=== PATIENT | female | born 1945 | race Caucasian/White ===

== ENCOUNTER 2019-04-01 14:55 | Inpatient (IN) | payer MEDICARE ==
[~2019-04-01] VITALS: Ht 165.1 cm; Wt 119.8 kg
[~2019-04-01 14:55] MED LIST: ALENDRONATE SOD70 MG PO; ALLOPURINOL100 MG PO; ALLOPURINOL300 MG PO; AMMONIUM LACTA225 GM TOP; ASPIR 8181 MG PO; ATIVAN0.5 MG PO; ATORVASTATIN CA20 MG PO; CARVEDILOL12.5 MG PO; CARVEDILOL3.125 MG PO; CITALOPRAM HBR20 MG PO; DETROL LA4 MG PO; DOCUSATE SODIU100 MG PO; DULCOLAX10 MG RC; DUONEB 0.5 MG-33 ML INH; FUROSEMIDE40 MG PO; GABAPENTIN400 MG PO; GLIPIZIDE ER5 MG PO; GLUCAGON1 MG SQ; LIDODERM700 MG TOP; LISINOPRIL5 MG PO; LOSARTAN POTAS100 MG PO; LOVENOX40 MG/0.4 SQ; METFORMIN HCL500 MG PO; NITROGLYCERIN0.4 MG SL; NITROSTAT0.4 MG SL; NORCO 5-325 TA1 EACH PO; NOVOLOG100 UNITS/ SC; POTASSIUM CHLO20 ME1 PO; PRESERVISION T1 EACH PO; PROTONIX40 MG/ML PO; SPIRIVA18 MCG; SPIRIVA18 MCG IH; TOLTERODINE TART2 MG PO; TYLENOL325 MG PO; ZAROXOLYN2.5 MG PO
--- OUTSIDE RECORDS SUMMARY | 2019-04-01 15:00 | XMS REPORT | Continuity of Care Document ---
Author Author [facility] Interface Address Unknown Phone Unavailable Problems Problem Status Onset Date Classification Date Reported Comments Source Z12.31 - ENCNTR SCREEN MAMMOGRAM FOR MA Active 01/21/2017 [facility] [place] CHF Active 11/11/2013 [place] DIFFICULTY BREATHING Active 11/11/2013 [facility] (<span [id number]</span>) Active 11/11/2013 Problem 03/22/2019 [facility] [place] [facility]F Active 11/11/2013 Problem 11/30/2013 [facility] DM - Diabetes mellitus Active Problem 03/22/2019 [facility] [place], [place] Gout, arthritis Active Problem 03/22/2019 [facility] [place] HTN (<span [id number]">Confirmed</span>) Active Problem 03/22/2019 [facility] [place] Gout, arthritis Active Problem 11/30/2013 [facility] HTN Active Problem 11/30/2013 [facility] Primary osteoarthritis involving multiple joints Active Diagnosis 11/15/2018 Matthew Browning Idiopathic gout of foot, unspecified chronicity, unspecified laterality Active Diagnosis 11/15/2018 Matthew Browning Age-related osteoporosis without current pathological fracture Active Diagnosis 11/15/2018 Matthew Browning Polyarthralgia Active Diagnosis 11/15/2018 Matthew Browning [facility] current use of opiate analgesic Active Diagnosis 11/15/2018 Matthew Browning Abnormal laboratory test Active Problem 11/15/2018 Matthew Browning Positive ALLEN Active Problem 11/15/2018 Matthew Browning CHF NOS Active [facility] Medications Medication Details Route Status Patient Instructions Ordering Provider Order Date Source Tramadol one tab orally Active 50 mg orally tid prn for pain Browning 10/30/2018 Matthew Browning Remove - lidocaine topical patch 1 patch, Route: TOP, Bedtime, Drug form: ERFILM, Start date: 11/27/13 21:00:00, Duration: 30 day, Stop date: 12/26/13 21:00:00 No Longer Active [facility] 11/28/2013 [facility] LORazepam 0.5 mg oral tablet 0.5 mg=1 tab, PO, BID, Anxiety, # 50 tab, 0 Refill(s) Active [facility] 11/27/2013 [facility] Lidoderm 5% topical film (patch) 1 patch, TOP, Daily, Remove after 12 hours, # 30 patch, 0 Refill(s)Remove after 12 hours Active [facility] 11/27/2013 [facility] docusate sodium 100 mg oral capsule 100 mg=1 cap, PO, BID, Constipation, # 60 cap, 0 Refill(s) Active [facility] 11/27/2013 [facility] furosemide 40 mg oral tablet 160 mg=4 tab, PO, After Lunch, # 120 tab, 0 Refill(s) Active [facility] 11/27/2013 [facility] enoxaparin 40 mg/0.4 mL subcutaneous solution 40 mg=0.4 mL, SUB-Q, [id number], # 1,200 mL, 0 Refill(s) Active [facility] 11/27/2013 [facility] Maced[place] 5/325 oral tablet 1 tab, PO, Q6H, Pain, # 120 tab, 0 Refill(s) Active [facility] 11/27/2013 [facility] metFORMIN 500 mg oral tablet 500 mg=1 tab, PO, BID, # 60 tab, 0 Refill(s) Active [facility] 11/27/2013 [facility] Zaroxolyn 2.5 mg oral tablet 2.5 mg=1 tab, PO, Q-M-W-F, # 90 tab, 0 Refill(s) Active [facility] 11/27/2013 [facility] tolterodine 4 mg oral capsule, extended release 4 mg=1 cap, PO, Q24H, # 30 cap, 0 Refill(s) Active [facility] 11/27/2013 [facility] Spiriva 18 mcg inhalation capsule 18 microgram=1 ea, INHALATION, Daily, # 90 ea, 0 Refill(s) Active [facility] 11/27/2013 [facility] potassium chloride 20 mEq oral tablet, extended release 20 mEq=1 tab, PO, Daily, # 30 tab, 0 Refill(s) Active [facility] 11/27/2013 [facility] pantoprazole 40 mg oral enteric coated tablet 40 mg=1 tab, PO, Before Dinner, # 30 tab, 0 Refill(s) Active [facility] 11/27/2013 [facility] nitroglycerin 0.4 mg sublingual tablet 0.4 mg=1 tab, SL, Q5Min, Chest Pain, # 100 tab, 0 Refill(s) Active [facility] 11/27/2013 [facility] lisinopril 5 mg oral tablet 5 mg=1 tab, PO, Daily, # 30 tab, 0 Refill(s) Active [facility] 11/27/2013 [facility] potassium chloride 20 mEq oral tablet, extended release 20 mEq, 1 tab, Route: PO, Drug form: ERTAB, Daily, Dosing Weight 137.443, kg, Start date: 11/27/13 9:00:00, Duration: 30 day, Stop date: 12/26/13 9:00:00(Same as: K-Dur 20) "Do Not Crush" With food and full glass of water No Longer Active [facility] 11/27/2013 [facility] Zaroxolyn 2.5 mg, 1 tab, Route: PO, Drug form: TAB, Daily, Dosing Weight 137.443, kg, Start date: 11/27/13 9:00:00, Duration: 30 day, Stop date: 12/26/13 9:00:00(Same as: Zaroxolyn) No Longer Active [facility] 11/27/2013 [facility] Lidoderm 5% topical film (patch) 1 patch, Route: TOP, Daily, Drug form: FILM, Start date: 11/27/13 9:00:00, Duration: 30 day, Stop date: 12/26/13 9:00:00, Remove after 12 hoursRemove after 12 hoursApply only once for up to 12 hours in a 24-hour period (12 hours on and 12 hours off). (Same as: Lidoderm) "Remove old patch before application of new patch" No Longer Active [facility] 11/27/2013 [facility] furosemide 160 mg, 4 tab, Route: PO, Drug form: TAB, After Lunch, Dosing Weight 137.443, kg, Start date: 11/26/13 12:30:00, Duration: 30 day, Stop date: 12/25/13 12:30:00(Same as: Lasix) May cause GI upset. Give with food or milk. No Longer Active [facility] 11/26/2013 [facility] Vesicare 10mg 5 mg, Route: PO, Daily, Dosing Weight 137.443, kg, Start date: 11/26/13 9:00:00, Duration: 30 day, Stop date: 12/25/13 9:00:00 No Longer Active [facility] 11/26/2013 [facility] Detrol LA 4 mg, 1 cap, Route: PO, Drug form: CAP, Q24H, Start date: 11/26/13 9:00:00, Duration: 30 day, Stop date: 12/25/13 9:00:00Do Not Crush. (Same As: Detrol LA) No Longer Active [facility] 11/26/2013 [facility] magnesium sulfate 2 gm in Water 50 ml 4 gm, 100 mL, Route: IV, Drug form: INJ, ONCE, Dosing Weight 137.443, kg, Start date: 11/25/13 9:58:00, Stop date: 11/25/13 9:58:00 Inactive [facility] 11/25/2013 [facility] Ativan 0.5 mg, 1 tab, Route: PO, Drug form: TAB, BID, Dosing Weight 137.443, kg, PRN Anxiety, Start date: 11/24/13 21:02:00, Duration: 30 day, Stop date: 12/24/13 21:01:00(Same as: Ativan) No Longer Active [facility] 11/25/2013 [facility] Lasix 80 mg, 8 mL, Route: IV, Drug form: INJ, Q8H, Dosing Weight 137.443, kg, Start date: 11/24/13 16:00:00, Duration: 30 day, Stop date: 12/24/13 8:00:00(Same as: Lasix) No Longer Active [facility] 11/24/2013 [facility] alteplase 2 mg, 2 mL, Route: INJ, Drug form: INJ, ONCE, Dosing Weight 137.443, kg, Start date: 11/24/13 15:48:00, Stop date: 11/24/13 15:48:00"Syringe for catheter clearance or interventional radiology use. Reconstitute each vial of Cathflo Activase with 2.2ml Sterile Water resulting in a 1mg/ml solution. "Withdraw with a 5 micron filter needle." . (Same as: Activase) Inactive [facility] 11/24/2013 [facility] Lasix 40 mg oral tablet 40 mg, 1 tab, Route: PO, Drug form: TAB, BID, Dosing Weight 137.443, kg, Start date: 11/23/13 21:00:00, Duration: 30 day, Stop date: 12/23/13 17:00:00(Same as: Lasix) May cause GI upset. Give with food or milk. No Longer Active [facility] 11/24/2013 [facility] magnesium oxide 1,000 mg, 4 tab, Route: PO, Drug form: TAB, ONCE, Dosing Weight 137.443, kg, Priority: NOW, Start date: 11/23/13 18:13:00, Stop date: 11/23/13 18:13:00 Inactive [facility] 11/24/2013 [facility] Lasix 40 mg, 4 mL, Route: IVP, Drug form: INJ, Q6H, Dosing Weight 137.443, kg, Start date: 11/22/13 12:00:00, Duration: 30 day, Stop date: 12/22/13 6:00:00(Same as: Lasix) No Longer Active [facility] 11/22/2013 [facility] Lac-Hydrin 12% topical cream 1 appl, Route: TOP, BID, Drug form: CRM, PRN Dry Skin, Start date: 11/21/13 13:35:00, Duration: 30 day, Stop date: 12/21/13 13:34:00(Same as: Amlactin) No Longer Active [facility] 11/21/2013 [facility] magnesium sulfate 2 gm in Water 50 ml 2 gm, 50 mL, Route: IVPB, Drug form: INJ, ONCE, Dosing Weight 137.443, kg, Start date: 11/21/13 10:45:00, Duration: 2 hr, Stop date: 11/21/13 10:45:00 Inactive [facility] 11/21/2013 [facility] Dulcolax Laxative 10 mg, 1 supp, Route: OH, Drug form: SUPP, ONCE, Dosing Weight 137.443, kg, PRN Constipation, Start date: 11/21/13 10:28:00(Same As: Dulcolax, Bisco-Lax) Inactive [facility] 11/21/2013 [facility] Lasix 20 mg, 2 mL, Route: IVP, Drug form: INJ, BID, Dosing Weight 137.443, kg, Start date: 11/19/13 17:00:00, Duration: 30 day, Stop date: 12/19/13 9:00:00(Same as: Lasix) No Longer Active [facility] 11/19/2013 [facility] morphine Sulfate 1 mg, 0.5 mL, Route: IV, Drug form: INJ, Q6H, Dosing Weight 137.443, kg, PRN Pain Score 1-5, Start date: 11/19/13 13:11:00, Duration: 30 day, Stop date: 12/19/13 13:10:00(Same as:MORPhine Sulfate) No Longer Active [facility] 11/19/2013 [facility] metFORmin 500 mg oral tablet 500 mg, 1 tab, Route: PO, Drug form: TAB, BID, Dosing Weight 137.443, kg, Start date: 11/18/13 17:00:00, Duration: 30 day, Stop date: 12/18/13 9:00:00(Same as: Glucophage) Take with meal No Longer Active [facility] 11/18/2013 [facility] [place] 5/325 oral tablet 1 tab, Route: PO, Drug Form: TAB, Dosing Weight 137.443, kg, Q6H, PRN Pain, Start date: 11/18/13 14:46:00, Duration: 30 day, Stop date: 12/18/13 14:45:00(Same as: [place] 325/5) Do not exceed 4gm/day of acetaminophen. No Longer Active [facility] 11/18/2013 [facility] Saline Flush 0.9% 5 ml, Route: IVP, Drug Form: INJ, Dosing Weight 137.443, kg, Q12H, Start date: 11/17/13 21:00:00, Duration: 30 day, Stop date: 12/17/13 9:00:00Same as: BD Posiflush Sterile No Longer Active [facility] 11/18/2013 [facility] glucagon 1 mg, Route: IM, Drug form: PDR/INJ, PRN, PRN Blood Glucose Results, Start date: 11/17/13 20:32:00, Duration: 30 day, Stop date: 12/17/13 20:31:00 No Longer Active [facility] 11/18/2013 [facility] Dextrose 50% in Water IV 50 mL, Route: IVP, Start date: 11/17/13 20:32:00, Duration: 30 day, Stop date: 12/17/13 20:31:00, PRN Blood Glucose Results No Longer Active [facility] 11/18/2013 [facility] NovoLog FlexPen 12 unit, 0.12 mL, Route: SUB-Q, Drug form: SOLN, Q6H, PRN Blood Glucose Results, Start date: 11/17/13 20:32:00, Duration: 30 day, Stop date: 12/17/13 20:31:00Roll in palms of hands gently; Do not shake vigorously. (Same as: NovoLog) "single patient use only" Stable for 28 days at room temperature. Expires in days from Date No Longer Active [facility] 11/18/2013 [facility] NovoLog FlexPen 2 unit, 0.02 mL, Route: SUB-Q, Drug form: SOLN, Q6H, PRN Blood Glucose Results, Start date: 11/17/13 20:31:00, Duration: 30 day, Stop date: 12/17/13 20:30:00Roll in palms of hands gently; Do not shake vigorously. (Same as: NovoLog) "single patient use only" Stable for 28 days at room temperature. Expires in days from Date No Longer Active [facility] 11/18/2013 [facility] normal saline 0.9% IV 1,000 mL 1,000 mL, Rate: 50 ml/hr, Infuse over: 20 hr, Route: IV, Dosing Weight 137.443 kg, Total Volume: 1,000, Start date: 11/17/13 19:17:00, Duration: 30 day, Stop date: 12/17/13 19:16:00 Inactive [facility] 11/18/2013 [facility] D10W 1,000 mL 1,000 mL, Rate: 50 ml/hr, Infuse over: 20 hr, Route: IV, Dosing Weight 137.443 kg, Total Volume: 1,000, Start date: 11/17/13 17:47:00, Duration: 30 day, Stop date: 12/17/13 17:46:00 No Longer Active [facility] 11/17/2013 [facility] Colace 100 mg oral capsule 100 mg, 1 cap, Route: PO, Drug form: CAP, BID, Dosing Weight 137.443, kg, Start date: 11/17/13 17:00:00, Duration: 30 day, Stop date: 12/17/13 9:00:00(Same as: Colace) (Do Not Crush) No Longer Active [facility] 11/17/2013 [facility] Saline Flush 0.9% 5 ml, Route: IVP, Drug Form: INJ, Dosing Weight 137.443, kg, PRN, PRN Line Flush, Start date: 11/17/13 14:50:00, Duration: 30 day, Stop date: 12/17/13 14:49:00 Inactive [facility] 11/17/2013 [facility] nitroglycerin SL Tab 0.4 mg, Route: SL, Drug form: TAB, Q5Min, Dosing Weight 137.443, kg, PRN Chest Pain, Start date: 11/17/13 14:50:00, Duration: 3 doses or times, Stop date: Limited # of times Inactive [facility] 11/17/2013 [facility] Dulcolax Laxative 10 mg, 1 supp, Route: OH, Drug form: SUPP, Daily, Dosing Weight 137.443, kg, PRN Constipation, Start date: 11/17/13 11:13:00, Duration: 30 day, Stop date: 12/17/13 11:12:00(Same As: Dulcolax, Bisco-Lax) No Longer Active [facility] 11/17/2013 [facility] Haldol 2 mg, 0.4 mL, Route: IV, Drug form: INJ, Q6H, Dosing Weight 137.443, kg, PRN as needed for anxiety, Start date: 11/16/13 21:44:00, Duration: 30 day, Stop date: 12/16/13 21:43:00(Same as: Haldol) No Longer Active [facility] 11/17/2013 [facility] Pyridium 100 mg, 1 tab, Route: PO, Drug form: TAB, TID, Dosing Weight 137.443, kg, Start date: 11/16/13 17:00:00, Duration: 30 day, Stop date: 12/16/13 13:00:00Give with meals. (Same as: Pyridium) No Longer Active [facility] 11/16/2013 [facility] Haldol 2 mg, 0.4 mL, Route: IV, Drug form: INJ, ONCE, Start date: 11/16/13 10:11:00, Stop date: 11/16/13 10:11:00(Same as: Haldol) Inactive [facility] 11/16/2013 [facility] furosemide 80 mg, 8 mL, Route: IV, Drug form: INJ, ONCE, Dosing Weight 137.443, kg, Start date: 11/15/13 20:00:00, Stop date: 11/15/13 20:00:00(Same as: Lasix) Inactive [facility] 11/16/2013 [facility] Rocephin + Sodium Chloride 0.9% IV 100 mL 1 gm, Route: IVPB, [id number], Dosing Weight 137.443, kg, Start date: 11/15/13 14:00:00, Duration: 30 day, Stop date: 12/14/13 14:00:00(Same As: Rocephin). Use with 100ml NS mini-bag PLUS and infuse over 30 min No Longer Active [facility] 11/15/2013 [facility] furosemide 60 mg, 6 mL, Route: IV, Drug form: INJ, ONCE, Dosing Weight 137.443, kg, Start date: 11/15/13 13:48:00, Stop date: 11/15/13 13:48:00(Same as: Lasix) Inactive [facility] 11/15/2013 [facility] Sodium Chloride 0.9% IV 1000 mL + Dextrose 70% in Water IV 500 ml 1,000 mL, Rate: 100 ml/hr, Infuse over: 10 hr, Route: IV, Dosing Weight 137.443 kg, Total Volume: 1,000, Start date: 11/15/13 13:28:00, Duration: 30 day, Stop date: 12/15/13 13:27:00 Inactive [facility] 11/15/2013 [facility] DuoNeb inhalation solution 3 ml, Route: INHALATION, Drug Form: SOLN, Dosing Weight 137.443, kg, PRN, PRN Wheezing, Start date: 11/15/13 13:02:00, Duration: 30 day, Stop date: 12/15/13 13:01:00(Same as: Duoneb) No Longer Active [facility] 11/15/2013 [facility] sterile water 600 mL + Dextrose 50% in Water IV 400 mL + sodium chloride 154 mEq 600 mL, 50 ml/hr, Route: IV, Drug Form: INJ, Dosing Weight 137.443, kg, Continuous, Start date: 11/15/13 2:35:00 No Longer Active [facility] 11/15/2013 [facility] Lasix 40 mg, 4 mL, Route: IV, Drug form: INJ, ONCE, Dosing Weight 137.443, kg, Start date: 11/14/13 20:25:00, Stop date: 11/14/13 20:25:00(Same as: Lasix) Inactive [facility] 11/15/2013 [facility] DuoNeb inhalation solution 3 ml, Route: INHALATION, Drug Form: SOLN, Dosing Weight 137.443, kg, RQ4H, PRN Respiratory Protocol, NOW, Start date: 11/14/13 20:24:00, Duration: 30 day, Stop date: 12/14/13 20:23:00(Same as: Duoneb) No Longer Active [facility] 11/15/2013 [facility] D10W 1000 mL 1,000 mL, Rate: 100 ml/hr, Infuse over: 10 hr, Route: IV, Dosing Weight 137.443 kg, Total Volume: 1,000, Start date: 11/14/13 16:28:00, Duration: 30 day, Stop date: 12/14/13 16:27:00 No Longer Active [facility] 11/14/2013 [facility] d50 syringe 25 gm, 50 mL, Route: IVP, Drug Form: INJ, Dosing Weight 137.443, kg, PRN, PRN Other -See Comment, Start date: 11/14/13 16:13:00, Duration: 30 day, Stop date: 12/14/13 16:12:00, for blood glucose No Longer Active [facility] 11/14/2013 [facility] D50W 1000 mL 1,000 mL, Rate: 100 ml/hr, Infuse over: 10 hr, Route: IV, Dosing Weight 137.443 kg, Total Volume: 1,000, Start date: 11/14/13 16:11:00, Duration: 30 day, Stop date: 12/14/13 16:10:00 Inactive [facility] 11/14/2013 [facility] D10W 1,000 mL 1,000 mL, Rate: 50 ml/hr, Infuse over: 20 hr, Route: IV, Dosing Weight 137.443 kg, Total Volume: 1,000, Start date: 11/14/13 14:13:00, Duration: 30 day, Stop date: 12/14/13 14:12:00 Inactive [facility] 11/14/2013 [facility] Dextrose 50% Syringe 25 gm, 50 mL, Route: IVP, Drug Form: INJ, Dosing Weight 137.443, kg, ONCE, PRN Blood Glucose Results, Start date: 11/14/13 5:39:00 Inactive [facility] 11/14/2013 [facility] Dextrose 5% in Water IV 1,000 mL 1,000 mL, Rate: 75 ml/hr, Infuse over: 13.3 hr, Route: IV, Dosing Weight 137.443 kg, Total Volume: 1,000, Start date: 11/14/13 5:39:00, Duration: 30 day, Stop date: 12/14/13 5:38:00 Inactive [facility] 11/14/2013 [facility] d50 syringe 25 gm, 50 mL, Route: IVP, Drug Form: INJ, Dosing Weight 137.443, kg, ONCE, Start date: 11/13/13 17:14:00, Stop date: 11/13/13 17:14:00 Inactive [facility] 11/13/2013 [facility] glimepiride 4 mg, 1 tab, Route: PO, Drug form: TAB, BID, Dosing Weight 137.443, kg, Start date: 11/13/13 17:00:00, Duration: 30 day, Stop date: 12/13/13 9:00:00(Same as: Amaryl) No Longer Active [facility] 11/13/2013 [facility] Spiriva 18 mcg inhalation capsule 1 ea, Route: INHALATION, Drug form: CAP, Daily, Dosing Weight 137.443, kg, Start date: 11/13/13 9:00:00, Duration: 30 day, Stop date: 12/12/13 9:00:00(Same As: Spiriva). No Longer Active [facility] 11/13/2013 [facility] lisinopril 5 mg, 1 tab, Route: PO, Drug form: TAB, Daily, Dosing Weight 137.443, kg, Start date: 11/13/13 9:00:00, Duration: 30 day, Stop date: 12/12/13 9:00:00(Same as: Prinivil, Zestril) No Longer Active [facility] 11/13/2013 [facility] furosemide 20 mg, 2 mL, Route: IVP, Drug form: INJ, Daily, Dosing Weight 137.443, kg, Start date: 11/13/13 9:00:00, Duration: 30 day, Stop date: 12/12/13 9:00:00(Same as: Lasix) No Longer Active [facility] 11/13/2013 [facility] Coreg 3.125 mg, 1 tab, Route: PO, Drug form: TAB, Q12H, Dosing Weight 137.443, kg, Start date: 11/12/13 21:00:00, Duration: 30 day, Stop date: 12/12/13 9:00:00Give with food. (Same As: Coreg) No Longer Active [facility] 11/13/2013 [facility] Protonix 40 mg, 1 tab, Route: PO, Drug form: ECTAB, Before Dinner, Start date: 11/12/13 16:30:00, Duration: 30 day, Stop date: 12/11/13 16:30:00Tablet should not be chewed or crushed. (Same as: Protonix) No Longer Active [facility] 11/12/2013 [facility] digoxin 0.25 mg, 1 mL, Route: IVP, Drug form: INJ, Q8H, Dosing Weight 137.443, kg, Start date: 11/12/13 12:00:00, Duration: 4 doses or times, Stop date: 11/13/13 12:00:00(Same as: Lanoxin) No Longer Active [facility] 11/12/2013 [facility] allopurinol 300 mg, 1 tab, Route: PO, Drug form: TAB, Daily, Dosing Weight 137.443, kg, Start date: 11/12/13 11:00:00, Duration: 30 day, Stop date: 12/12/13 9:00:00(Same as: Zyloprim) No Longer Active [facility] 11/12/2013 [facility] cholecalciferol 5,000 IntlUnit, 5 tab, Route: PO, Drug form: TAB, Daily, Dosing Weight 137.443, kg, Start date: 11/12/13 11:00:00, Duration: 30 day, Stop date: 12/12/13 9:00:00Same as : Vitamin D3 No Longer Active [facility] 11/12/2013 [facility] Nitrostat 0.4 mg sublingual tablet 0.4 mg, 1 tab, Route: SL, Drug form: TAB, Q5Min, Dosing Weight 137.443, kg, PRN Chest Pain, Start date: 11/12/13 10:39:00, Duration: 3 doses or times, Stop date: Limited # of times Inactive [facility] 11/12/2013 [facility] magnesium sulfate 2 gm in Water 50 ml 2 gm, 50 mL, Route: IV, Drug form: INJ, ONCE, Dosing Weight 137.443, kg, Start date: 11/12/13 10:38:00, Stop date: 11/12/13 10:38:00 Inactive [facility] 11/12/2013 [facility] LORAzepam 0.5 mg, 1 tab, Route: PO, Drug form: TAB, TID, Dosing Weight 137.443, kg, PRN Anxiety, Start date: 11/12/13 10:38:00, Duration: 30 day, Stop date: 12/12/13 10:37:00(Same as: Ativan) No Longer Active [facility] 11/12/2013 [facility] morphine Sulfate 2 mg, 1 mL, Route: IVP, Drug form: INJ, Q2H, Dosing Weight 137.443, kg, PRN Chest Pain, Start date: 11/12/13 10:38:00, Duration: 30 day, Stop date: 12/12/13 10:37:00(Same as:MORPhine Sulfate) No Longer Active [facility] 11/12/2013 [facility] hydrALAZINE 10 mg, 0.5 mL, Route: IV, Drug form: INJ, Q4H, Dosing Weight 137.443, kg, PRN Hypertension, Start date: 11/12/13 10:38:00, Duration: 30 day, Stop date: 12/12/13 10:37:00(Same as: Apresoline) Push over 5 minutes No Longer Active [facility] 11/12/2013 [facility] metoprolol 5 mg/5 ml INJ 2.5 mg, 2.5 mL, Route: IV, Drug form: INJ, Q2H, Dosing Weight 137.443, kg, PRN Tachycardia, Start date: 11/12/13 10:38:00, Duration: 30 day, Stop date: 12/12/13 10:37:00(Same as: Lopressor) Push over 2 minutes No Longer Active [facility] 11/12/2013 [facility] pneumococcal 23-valent vaccine 0.5 ml, Route: IM, Drug Form: INJ, Start date: 11/12/13 9:00:00, Stop date: 11/12/13 9:00:00 Inactive [facility] 11/12/2013 [facility] Lovenox 40 mg, 0.4 mL, Route: SUB-Q, Drug form: INJ, [id number], Dosing Weight 130.909, kg, Start date: 11/12/13 0:00:00, Duration: 30 day, Stop date: 12/11/13 0:00:00(Same as: Lovenox) No Longer Active [facility] 11/12/2013 [facility] Saline Flush 0.9% 5 ml, Route: IVP, Drug Form: INJ, Dosing Weight 130.909, kg, PRN, PRN Line Flush, Start date: 11/11/13 23:50:00, Duration: 30 day, Stop date: 12/11/13 23:49:00(Same as: BD Posiflush) No Longer Active [facility] 11/12/2013 [facility] pantoprazole 40 mg, Route: IVP, Drug form: INJ, Before Dinner, Dosing Weight 130.909, kg, Priority: STAT, Start date: 11/11/13 23:50:00, Duration: 30 day, Stop date: 12/11/13 16:30:00For IV push reconstitute with 10 ml 0.9% sodium chloride and push over 2 minutes. (Same as: Protonix) No Longer Active [facility] 11/12/2013 [facility] ondansetron 4 mg, 2 mL, Route: IVP, Drug form: INJ, Q8H, Dosing Weight 130.909, kg, PRN Nausea & Vomiting, Start date: 11/11/13 23:50:00, Duration: 30 day, Stop date: 12/11/13 23:49:00(Same as: Zofran) [facility] docusate 100 mg, 1 cap, Route: PO, Drug form: CAP, BID, Dosing Weight 130.909, kg, PRN Constipation, Start date: 11/11/13 23:50:00, Duration: 30 day, Stop date: 12/11/13 23:49:00(Same as: Colace) (Do Not Crush) No Longer Active [facility] 11/12/2013 [facility] acetaminophen 650 mg, 20.3 mL, Route: PO, Drug form: LIQ, Q4H, Dosing Weight 130.909, kg, PRN Pain 1-3/Temp > 100.4 F, Start date: 11/11/13 23:50:00, Duration: 30 day, Stop date: 12/11/13 23:49:00Max [id number]=8694cu/day (4 gm/day). (Same as: Tylenol) [facility] Lasix 40 mg, 4 mL, Route: IVP, Drug form: INJ, Q12H, Dosing Weight 130.909, kg, Priority: STAT, Start date: 11/11/13 23:50:00, Duration: 30 day, Stop date: 12/11/13 21:00:00(Same as: Lasix) No Longer Active [facility] 11/12/2013 [facility] nitroglycerin 0.4 mg sublingual tablet 0.4 mg, 1 tab, Route: SL, Drug form: TAB, Q5Min, PRN Chest Pain, Start date: 11/11/13 23:30:00, Duration: 30 day, Stop date: 12/11/13 23:29:00(Same as:Nitroquick, Nitrostat) "Do Not Crush" Sublingual tablet [facility] atropine 0.5 mg, 5 mL, Route: IVP, Drug form: INJ, PRN, PRN Bradycardia, Start date: 11/11/13 23:30:00, Duration: 30 day, Stop date: 12/11/13 23:29:00 No Longer Active [facility] 11/12/2013 [facility] Valium 10 mg, Route: PO, ONCE, Dosing Weight 130.909, kg, Priority: STAT, Start date: 11/11/13 22:49:00, Stop date: 11/11/13 22:49:00 Inactive [facility] 11/12/2013 [facility] hydrochlorothiazide-triamterene 25 mg-37.5 mg oral capsule 1 cap, PO, Daily, # 30 cap, 0 Refill(s) No Longer Active 11/12/2013 [facility] allopurinol 300 mg oral tablet 300 mg=1 tab, PO, Daily, # 30 tab, 0 Refill(s) Active [facility] 11/12/2013 [facility] Actos 45 mg oral tablet 45 mg=1 tab, PO, Daily, # 30 tab, 0 Refill(s) No Longer Active 11/12/2013 [facility] glimepiride 4 mg oral tablet 4 mg=1 tab, PO, BID, # 30 tab, 0 Refill(s) No Longer Active 11/12/2013 [facility] diazepam 10 mg oral tablet 10 mg=1 tab, PO, TID, Anxiety, 0 Refill(s) No Longer Active 11/12/2013 [facility] metFORmin 500 mg oral tablet 1,000 mg=2 tab, PO, BID, # 60 tab, 0 Refill(s) No Longer Active 11/12/2013 [facility] tramadol 100 mg, Route: PO, Drug form: TAB, ONCE, Dosing Weight 130.909, kg, Start date: 11/11/13 19:20:00, Stop date: 11/11/13 19:20:00 Inactive [facility] 11/12/2013 [facility] Lasix 40 mg, 4 mL, Route: IVP, Drug form: INJ, ONCE, Dosing Weight 130.909, kg, Priority: STAT, Start date: 11/11/13 19:18:00, Stop date: 11/11/13 19:18:00(Same as: Lasix) Inactive [facility] 11/12/2013 [facility] Atorvastatin Calcium 1 tablet Orally Active 35mg Orally Once a day Nallely Browning Allopurinol 1 tablet Orally Active 100 MG Orally Once a day Nallely Browning Aspir-81 1 tablet Orally Active 81 MG Orally Once a day Nallely Browning Losartan Potassium 1 tablet Orally Active 100 MG Orally Once a day Nallely Browning Furosemide 1 tablet Orally Active 80 MG Orally Once a day Nallely Browning Gabapentin 1 capsule Orally Active 400 MG Orally Twice a day [place] Matthew Browning Tolterodine Tartrate 1 tablet Orally Active 2 MG Orally Twice a day [place] Matthew Browning Alendronate Sodium 1 tablet Orally Active 35 MG Orally q week [place] Matthew Browning Citalopram Hydrobromide 1 tablet Orally Active 10 MG Orally Once a day [place] Matthew Browning Tramadol HCl 1 tablet as needed Orally Active 50 MG Orally every 6 hrs [place] Matthew Browning Carvedilol 1 tablet Orally Active 12.5 MG Orally once a day [place] Matthew Browning Allergies, Adverse Reactions, Alerts Substance Category Reaction Severity Reaction type Status Date Reported Comments Source N.K.D.A. Adverse Reaction Info Not Available Adverse Reaction Active 10/30/2018 Matthew [facility] No Known Medication Allergies Assertion Drug allergy AYLIN Perez Immunizations Immunization Date Given Site Status Last Updated Comments Source influenza virus vaccine, inactivated<sup>1</sup> 11/28/2013 completed Keeley Admin Note: recvd 10/30/13 at 's office AYLIN [place] influenza virus vaccine, inactivated<sup>1</sup> 11/28/2013 completed Keeley 1Admin Note: recvd 10/30/13 at 's office [facility] pneumococcal 23-valent vaccine 11/12/2013 Right Deltoid [facility] [place] pneumococcal 23-valent vaccine 11/12/2013 completed Abisai [facility] Results Order Name Results Value Reference Range Date Interpretation Comments Source Breast Mammo Scrn ZAK incl CAD MA Breast Mammo Scrn ZAK incl CAD MA BILATERAL DIGITAL SCREENING MAMMOGRAM WITH CAD: 03/20/2019 CLINICAL: Routine/Screening. Current study was evaluated with a Computer Aided Detection (CAD) system. COMPARISON:Comparison is made to exams dated: 02/19/2017 mammogram - [facility] [place] [place] and 11/08/2014 mammogram - [facility]. TECHNIQUE: Mammographic views were obtained using digital acquisition. Current study was also evaluated with a Computer Aided Detection (CAD) system. FINDINGS: There are scattered fibroglandular densities in both breasts. Multiple bilateral asymmetries are stable when accounting for differences in positioning and technique. There are benign vascular calcifications and calcifications in both breasts. No significant masses, calcifications, or other findings are seen in either breast. There has been no significant interval change. IMPRESSION: BENIGN RECOMMENDATION:There is no mammographic evidence of malignancy. A 1 year screening mammogram is recommended.(03/20/2020) This exam was interpreted at [id number] for ISIDRO Perez, SL 15. Professional services are provided by the [facility]. Michael Garcia M.D. cm/penrad:03/20/2019 15:44:45 Line O Scribe Operator(s): RT Jake(R)(M), [facility] [place] [place] letter sent: BI-RADS 1/2 Mammogram BI-RADS: 2 Benign 03/20/2019 - - Read by: Memo Vaughan MD Dictated Date/time: 03/20/19 15:44 Electronically Signed by: Memo Vaughan MD 03/20/19 15:44 FINAL REPORT ISIDRO Perez Bone Density DXA [employer] MA Bone Density DXA [employer] MA BONE DENSITY ASSESSMENT: 03/20/2019 CLINICAL DATA: Post menopausal and clinical risk for osteoporosis. /Post Menopausal DISEASE HISTORY: Type 1 diabetes. FINDINGS: Bone density evaluation was performed 03/20/2019 on the right femur neck using a Hologic unit. The BMD average for the exam is 0.506 g/cm2. The T-score is -3.10 and the Z-score is -1.20. This matches the World Health Organization's criteria for osteoporosis and places the patient at a high risk for fracture. An additional bone density evaluation was performed 03/20/2019 on the left femur neck using a Hologic unit. The BMD average for the exam is 0.635 g/cm2. The T- score is -1.90. This matches the World Health Organization's criteria for osteopenia and places the patient at a medium risk for fracture. An additional bone density evaluation was performed 03/20/2019 on the right hip using a Hologic unit. The BMD average for the exam is 0.761 g/cm2. The T-score is -1.50 and the Z-score is 0.10. This matches the World Health Organization's criteria for osteopenia and places the patient at a medium risk for fracture. An additional bone density evaluation was performed 03/20/2019 on the left hip using a Hologic unit. The BMD average for the exam is 0.728 g/cm2. The T-score is -1.80 and the Z-score is -0.10. This matches the World Health Organization's criteria for osteopenia and places the patient at a medium risk for fracture. An additional bone density evaluation was performed 03/20/2019 on the AP L1-L2 region of spine using a Hologic unit. The BMD average for the exam is 1.147 g/cm2. The T-score is 1.50 and the Z-score is 3.60. This matches the World Health Organization's criteria for normal bone density and places the patient within normal limits of fracture risk. IMPRESSION: OSTEOPOROSIS Patient is at high risk for fracture. Patient consult w/primary care provider is recommended. This exam was interpreted at [id number] for FABI Greenberg 15. Olga Fong M.D., ms/mina:03/23/2019 08:51:23 Line O Scribe Operator(s): Lalita NAILS)(Sharyn), [facility] [place] [place] 03/20/2019 - - Read by: Olga Fong MD Dictated Date/time: 03/23/19 08:51 Electronically Signed by: Olga Fong MD 03/23/19 08:51 FINAL REPORT ISIDRO Perez Bone Density DXA [employer] MA Bone Density DXA [employer] MA - Bone Density DXA [employer] MA BONE DENSITY EVALUATION: 02/19/2017 CLINICAL DATA: Post menopausal. RISK FACTORS: race and early or surgical menopause. FINDINGS: Bone density evaluation was performed 02/19/2017 on the AP L2-L4 region of spine using a Hologic unit. The BMD average for the exam is 1.069 g/cm2. The T-score is -0.10 and the Z-score is 2.10. This matches the World Health Organization's criteria for normal bone density and places the patient within normal limits of fracture risk. An additional bone density evaluation was performed 02/19/2017 on the right femur neck using a Hologic unit. The BMD average for the exam is 0.478 g/cm2. The T-score is -3.30 and the Z-score is -1.50. This matches the World Health Organization's criteria for osteoporosis and places the patient at a high risk for fracture. An additional bone density evaluation was performed 02/19/2017 on the right hip using a Hologic unit. The BMD average for the exam is 0.746 g/cm2. The T-score is -1.60 and the Z-score is -0.10. This matches the World Health Organization's criteria for osteopenia and places the patient at a medium risk for fracture. An additional bone density evaluation was performed 02/19/2017 on the left femur neck using a Hologic unit. The BMD average for the exam is 0.574 g/cm2. The T- score is -2.50 and the Z-score is -0.70. This matches the World Health Organization's criteria for osteoporosis and places the patient at a high risk for fracture. An additional bone density evaluation was performed 02/19/2017 on the left hip using a Hologic unit. The BMD average for the exam is 0.720 g/cm2. The T-score is -1.80 and the Z-score is -0.30. This matches the World Health Organization's criteria for osteopenia and places the patient at a medium risk for fracture. This scan was performed on a e-channel Wi DEXA scanner. IMPRESSION: OSTEOPOROSIS Patient is at high risk for fracture. Patient consult w/primary care provider is recommended. Professional services are provided by the [facility]. This exam was dictated and interpreted by [id number] for ISIDRO Perez. [place] michael/mina:02/20/2017 08:36:02 Line O Scribe Operator: Nirmala CASTELLANOS(R)(M), [facility] [place] [place] 02/19/2017 - - Read by: Helena Myers MD Dictated Date/time: 02/20/17 08:36 Electronically Signed by: Helena Myers MD 02/20/17 08:36 FINAL REPORT ISIDRO Perez Breast Mammo Scrn ZAK incl CAD MA Breast Mammo Scrn ZAK incl CAD MA - BREAST MAMMO SCRN ZAK INCL CAD MA BILATERAL DIGITAL SCREENING MAMMOGRAM WITH CAD: 02/19/2017 CLINICAL: Routine. Current study was evaluated with a Computer Aided Detection (CAD) system. Comparison is made to exam dated: 11/08/2014 mammogram - [facility]. There are scattered fibroglandular densities in both breasts. Stable asymmetric breast tissue is noted in the left upper outer breast. There are benign vascular calcifications in both breasts. There also are benign calcifications in the right breast. No significant masses, calcifications, or other findings are seen in either breast. There has been no significant interval change. IMPRESSION: BENIGN There is no mammographic evidence of malignancy. A 1 year screening mammogram is recommended. Professional services are provided by the [facility]. Helena Myers M.D. ak/penrad:02/19/2017 09:11:48 Line O Scribe Operator: Lalita Gonzalez RT(R)(M), [facility] [place] [place] This exam was dictated and interpreted by [id number] for ISIDRO Tucker Abel. letter sent: Normal exam Mammogram BI-RADS: 2 Benign 02/19/2017 - - Read by: Helena Myers MD Dictated Date/time: 02/19/17 09:11 Electronically Signed by: Helena Myers MD 02/19/17 09:11 FINAL REPORT ISIDRO Perez Digital Mammo Screening Zak MA Digital Mammo Screening Zak MA - DIGITAL MAMMO SCREENING ZAK MA BILATERAL FIRST EVER DIGITAL SCREENING MAMMOGRAM WITH CAD: 11/08/2014 CLINICAL: Routine. Current study was evaluated with a Computer Aided Detection (CAD) system. No prior exams were available for comparison. There are scattered fibroglandular densities in both breasts. No significant masses, calcifications, or other findings are seen in either breast. IMPRESSION: NEGATIVE There is no mammographic evidence of malignancy. A screening mammogram in one year is recommended. Dr. Cristian schafer/penrad:11/08/2014 12:27:46 Line O Scribe Operator: Alycia Webb RT(R)(M), [facility] This exam was dictated and interpreted by [id number] for ISIDRO Perez. letter sent: Normal exam Mammogram BI-RADS: 1 Negative 11/08/2014 - - Read by: Cristian Bee MD Dictated Date/time: 11/08/14 12:27 Electronically Signed by: Cristian Bee MD 11/08/14 12:27 FINAL REPORT AYLIN Toro BEDSIDE GLUCOSE TESTING Glucose POC 119 mg/dL 70 - 99 11/28/2013 [place] 1Interpretive Data: Upper Reportable Limit: 200 mg/dL. [facility] BEDSIDE GLUCOSE TESTING Gluc POC Comment 1 Notified CYNTHIA 11/27/2013 [facility] GLUCOSE TESTING Glucose POC 126 mg/dL 70 - 99 11/27/2013 [place] 2Interpretive Data: Upper Reportable Limit: 200 mg/dL. [facility] BEDSIDE GLUCOSE TESTING Gluc POC Comment 1 Notified CYNTHIA 11/27/2013 [facility] BEDSIDE GLUCOSE TESTING Glucose POC 131 mg/dL 70 - 99 11/27/2013 [place] 3Interpretive Data: Upper Reportable Limit: 200 mg/dL. [facility] CHEMISTRY Uric Acid 3.7 mg/dL 2.5 - 7.0 11/27/2013 Normal [facility] Foot 3 views Bilateral Foot 3 views Bilateral HISTORY: Swelling and pain. Bilateral feet 3 views each. Nonspecific soft tissue swelling within both feet. No soft tissue gas collection. No fracture subluxation or focal bone lesion is otherwise demonstrated. SL:13 11/27/2013 - - Read by: Tomi Israel Dictated Date/time: 11/27/13 11:16 Electronically Signed by: Tomi Israel MD 11/27/13 11:18 FINAL REPORT [facility] GLUCOSE TESTING Gluc POC Comment 1 Notified CYNTHIA 11/26/2013 [facility] CHEMISTRY Phosphorus 2.8 mg/dL 2.5 - 4.5 11/26/2013 Normal [facility] CHEMISTRY Magnesium Lvl 2.0 mg/dL 1.8 - 2.4 11/26/2013 Normal [facility] CHEMISTRY Calcium Lvl 8.1 mg/dL 8.5 - 10.5 11/26/2013 LOW [facility] CHEMISTRY CO2 34 meq/L 24 - 32 11/26/2013 HI [facility] CHEMISTRY eGFR 91 mL/min/1.73m2 11/26/2013 4Result Comment: The eGFR is calculated using the CKD-EPI formula. In most young, healthy individuals the eGFR will be >90 mL/min/1.73m2. The eGFR declines with age. An eGFR of 60-89 may be normal in some populations, particularly the elderly, for whom the CKD-EPI formula has not been extensively validated. Use of the eGFR is not recommended in the following populations: Individuals with unstable creatinine concentrations, including patients and those with serious co-morbid conditions. Patients with extremes in muscle mass or diet. The data above are obtained from the National Kidney Disease Education Program (NKDEP) which additionally recommends that when the eGFR is used in patients with extremes of body mass index for purposes of drug dosing, the eGFR should be multiplied by the estimated BMI. [facility] CHEMISTRY AGAP 13.2 meq/L 10.0 - 20.0 11/26/2013 Normal [facility] CHEMISTRY Sodium Lvl 138 meq/L 135 - 145 11/26/2013 Normal [facility] CHEMISTRY Creatinine Lvl 0.7 mg/dL 0.5 - 1.4 11/26/2013 Normal [facility] CHEMISTRY Chloride Lvl 95 meq/L 95 - 109 11/26/2013 Normal [facility] CHEMISTRY Potassium Lvl 4.2 meq/L 3.5 - 5.1 11/26/2013 Normal [facility] CHEMISTRY Glucose Lvl 120 mg/dL 70 - 99 11/26/2013 [place] 7Interpretive Data: Adult reference range values reflect the clinical guidelines of the [place] [employer]. [facility] CHEMISTRY BUN 22 mg/dL 7 - 22 11/26/2013 Normal [facility] CHEMISTRY Magnesium Lvl 1.2 mg/dL 1.8 - 2.4 11/25/2013 LOW [facility] CHEMISTRY Phosphorus 2.7 mg/dL 2.5 - 4.5 11/25/2013 Normal [facility] CHEMISTRY eGFR 77 mL/min/1.73m2 11/25/2013 5Result Comment: The eGFR is calculated using the CKD-EPI formula. In most young, healthy individuals the eGFR will be >90 mL/min/1.73m2. The eGFR declines with age. An eGFR of 60-89 may be normal in some populations, particularly the elderly, for whom the CKD-EPI formula has not been extensively validated. Use of the eGFR is not recommended in the following populations: Individuals with unstable creatinine concentrations, including patients and those with serious co-morbid conditions. Patients with extremes in muscle mass or diet. The data above are obtained from the National Kidney Disease Education Program (NKDEP) which additionally recommends that when the eGFR is used in patients with extremes of body mass index for purposes of drug dosing, the eGFR should be multiplied by the estimated BMI. [facility] CHEMISTRY Glucose Lvl 132 mg/dL 70 - 99 11/25/2013 [place] 8Interpretive Data: Adult reference range values reflect the clinical guidelines of the [place] [employer]. [facility] CHEMISTRY Creatinine Lvl 0.8 mg/dL 0.5 - 1.4 11/25/2013 Normal [facility] CHEMISTRY BUN 22 mg/dL 7 - 22 11/25/2013 Normal [facility] CHEMISTRY Sodium Lvl 139 meq/L 135 - 145 11/25/2013 Normal [facility] CHEMISTRY Chloride Lvl 95 meq/L 95 - 109 11/25/2013 Normal [facility] CHEMISTRY Potassium Lvl 4.5 meq/L 3.5 - 5.1 11/25/2013 Normal [facility] CHEMISTRY CO2 37 meq/L 24 - 32 11/25/2013 [place] [facility] CHEMISTRY Calcium Lvl 8.3 mg/dL 8.5 - 10.5 11/25/2013 LOW [facility] CHEMISTRY AGAP 11.5 meq/L 10.0 - 20.0 11/25/2013 Normal [facility] HEMATOLOGY RDW 20.0 % 11.5 - 14.5 11/25/2013 [facility] HEMATOLOGY MCHC 29.8 g/dL 32.0 - 36.0 11/25/2013 LOW [facility] HEMATOLOGY MCH 26.3 pg 27.0 - 31.0 11/25/2013 LOW [facility] HEMATOLOGY Platelet 170 K/CMM 133 - 450 11/25/2013 Normal [facility] HEMATOLOGY Hgb 10.0 g/dL 12.0 - 16.0 11/25/2013 LOW [facility] HEMATOLOGY RBC X 10x6 3.80 M/CMM 4.20 - 5.40 11/25/2013 LOW [facility] HEMATOLOGY MCV 88.0 fL 81.0 - 99.0 11/25/2013 Normal [facility] HEMATOLOGY Hct 33.4 % 36.0 - 48.0 11/25/2013 LOW [facility] HEMATOLOGY MPV 7.2 fL 7.4 - 10.4 11/25/2013 LOW [facility] HEMATOLOGY WBC X 10x3 10.0 K/CMM 3.7 - 10.4 11/25/2013 Normal [facility] HEMATOLOGY Monocytes # 0.9 K/CMM 0.0 - 0.8 11/25/2013 [facility] HEMATOLOGY Basophils 0.8 % 0.0 - 1.0 11/25/2013 Normal [facility] HEMATOLOGY Lymphocytes # 1.7 K/CMM 1.0 - 5.5 11/25/2013 Normal [facility] HEMATOLOGY Eosinophils 2.8 % 0.0 - 4.0 11/25/2013 Normal [facility] HEMATOLOGY Segs-Bands # 7.0 K/CMM 1.5 - 8.1 11/25/2013 Normal [facility] HEMATOLOGY Basophils # 0.1 K/CMM 0.0 - 0.2 11/25/2013 Normal [facility] HEMATOLOGY Eosinophils # 0.3 K/CMM 0.0 - 0.5 11/25/[address] [facility] Monocytes 8.9 % 2.0 - 12.0 11/25/[address] [facility] Lymphocytes 17.2 % 20.0 - 40.0 11/25/[address] [facility] Segs 70.3 % 45.0 - 75.0 11/25/[address] [facility] INR 1.01 0.85 - 1.17 11/24/2013 Normal 19Interpretive Data: RECOMMENDED RANGES FOR PROTIME INR: 2.0-3.0 for most medical and surgical thromboembolic states. 2.5-3.5 for artificial heart valves and recurrent embolism. INR SHOULD BE USED ONLY FOR PATIENTS ON STABLE ANTICOAGULANT THERAPY. [facility] PROTIME 13.2 s 12.0 - 14.7 11/24/[address] [facility] aPTT 31.1 s 22.9 - 35.8 11/24/2013 Normal 22Interpretive Data: Heparin Therapeutic Range: 57 - 92 Seconds [facility] BEDSIDE GLUCOSE TESTING Gluc POC Comment 2 Confirmed with 11/24/2013 [facility] BEDSIDE GLUCOSE TESTING Gluc POC Comment 2 Confirmed with 11/24/2013 [facility] CHEMISTRY eGFR 77 mL/min/1.73m2 11/24/2013 6Result Comment: The eGFR is calculated using the CKD-EPI formula. In most young, healthy individuals the eGFR will be >90 mL/min/1.73m2. The eGFR declines with age. An eGFR of 60-89 may be normal in some populations, particularly the elderly, for whom the CKD-EPI formula has not been extensively validated. Use of the eGFR is not recommended in the following populations: Individuals with unstable creatinine concentrations, including patients and those with serious co-morbid conditions. Patients with extremes in muscle mass or diet. The data above are obtained from the National Kidney Disease Education Program (NKDEP) which additionally recommends that when the eGFR is used in patients with extremes of body mass index for purposes of drug dosing, the eGFR should be multiplied by the estimated BMI. [facility] CHEMISTRY BUN 19 mg/dL 7 - 22 11/24/2013 Normal [facility] CHEMISTRY Creatinine Lvl 0.8 mg/dL 0.5 - 1.4 11/24/2013 Normal [facility] CHEMISTRY Potassium Lvl 4.3 meq/L 3.5 - 5.1 11/24/2013 Normal [facility] CHEMISTRY Sodium Lvl 135 meq/L 135 - 145 11/24/2013 Normal [facility] CHEMISTRY Chloride Lvl 94 meq/L 95 - 109 11/24/2013 LOW [facility] CHEMISTRY Calcium Lvl 8.5 mg/dL 8.5 - 10.5 11/24/2013 Normal [facility] CHEMISTRY CO2 38 meq/L 24 - 32 11/24/2013 HI [facility] CHEMISTRY AGAP 7.3 meq/L 10.0 - 20.0 11/24/2013 LOW [facility] CHEMISTRY Glucose Lvl 139 mg/dL 70 - 99 11/24/2013 [place] 9Interpretive Data: Adult reference range values reflect the clinical guidelines of the [place] [employer]. [facility] CHEMISTRY Magnesium Lvl 1.4 mg/dL 1.8 - 2.4 11/24/2013 LOW [facility] CHEMISTRY Phosphorus 2.4 mg/dL 2.5 - 4.5 11/24/2013 LOW [facility] BEDSIDE GLUCOSE TESTING Gluc POC Comment 2 Notified RN/MD 11/23/2013 [facility] CHEMISTRY Globulin 4.0 g/dL 2.0 - 4.0 11/22/2013 Normal [facility] CHEMISTRY A/G Ratio 0.6 0.7 - 1.6 11/22/2013 LOW [facility] CHEMISTRY B/C Ratio 40 6 - 25 11/22/2013 HI [facility] CHEMISTRY Bili Total 0.6 mg/dL 0.2 - 1.3 11/22/2013 Normal [facility] CHEMISTRY ASPARTATE TRANSAMINASE 26 unit/L 0 - 37 11/22/2013 Normal [facility] CHEMISTRY Albumin Lvl 2.4 g/dL 3.5 - 5.0 11/22/2013 LOW [facility] CHEMISTRY ALANINE AMINOTRANSFERASE 16 unit/L 0 - 65 11/22/2013 Normal [facility] CHEMISTRY Alk Phos 118 unit/L 39 - 136 11/22/2013 Normal [facility] CHEMISTRY Total Protein 6.4 g/dL 6.4 - 8.4 11/22/2013 Normal [facility] HEMATOLOGY Segs 73.2 % 45.0 - 75.0 11/22/2013 Normal [facility] HEMATOLOGY Lymphocytes 13.9 % 20.0 - 40.0 11/22/2013 LOW [facility] HEMATOLOGY Eosinophils 1.6 % 0.0 - 4.0 11/22/2013 Normal [facility] HEMATOLOGY Basophils 0.4 % 0.0 - 1.0 11/22/2013 Normal [facility] HEMATOLOGY Monocytes 10.9 % 2.0 - 12.0 11/22/2013 Normal [facility] HEMATOLOGY Lymphocytes # 1.0 K/CMM 1.0 - 5.5 11/22/2013 Normal [facility] HEMATOLOGY Segs-Bands # 5.5 K/CMM 1.5 - 8.1 11/22/[address] [facility] Monocytes # 0.8 K/CMM 0.0 - 0.8 11/22/2013 Normal [facility] HEMATOLOGY Eosinophils # 0.1 K/CMM 0.0 - 0.5 11/22/2013 Normal [facility] HEMATOLOGY Basophils # 0.0 K/CMM 0.0 - 0.2 11/22/[address] [facility] MPV 7.8 fL 7.4 - 10.4 11/22/[address] [facility] Platelet 156 K/CMM 133 - 450 11/22/[address] [facility] RDW 20.1 % 11.5 - 14.5 11/22/[address] [facility] MCHC 31.6 g/dL 32.0 - 36.0 11/22/[address] [facility] MCH 27.2 pg 27.0 - 31.0 11/22/[address] [facility] RBC X 10x6 3.81 M/CMM 4.20 - 5.40 11/22/2013 [facility] WBC X 10x3 7.5 K/CMM 3.7 - 10.4 11/22/[address] [facility] Hct 32.8 % 36.0 - 48.0 11/22/[address] [facility] MCV 86.2 fL 81.0 - 99.0 11/22/[address] [facility] Hgb 10.4 g/dL 12.0 - 16.0 11/22/2013 [facility] Esophagus barium swallow function video (Rad) Esophagus barium swallow function video (Rad) Modified Barium Swallow: CLINICAL HX: Dysphagia, pneumonia Fluoroscopic assistance was provided for the speech pathologist for the modified barium swallow examination. FINDINGS: The patient swallowed thin barium without difficulty. No aspiration, laryngeal penetration or any significant residual is noted. The patient also tolerated pudding consistency barium and barium with cracker readily. There is no evidence for laryngeal penetration or tracheal aspiration on these latter 2 maneuvers. Please, see report by the speech pathologist for additional details. Fluoroscopy Time: 0.3 minutes SL:13 11/20/2013 - - Read by: Teddy Mack Dictated Date/time: 11/20/13 15:55 Electronically Signed by: Teddy Mack MD 11/20/13 15:55 FINAL REPORT [facility] CHEMISTRY pCO2 Art 53 mm[Hg] 35 - 45 11/18/2013 [facility] CHEMISTRY pO2 Art 116 mm[Hg] 80 - 100 11/18/2013 [facility] CHEMISTRY HCO3 Art 29 mMol/L 22 - 26 11/18/2013 [facility] CHE[facility]Y pH Art 7.35 7.35 - 7.45 11/18/2013 Normal [facility] CHEMISTRY Flow Art 4.0 11/18/2013 [facility] CHEMISTRY O2Hb Art 95.5 % 95.0 - 100.0 11/18/2013 Normal [facility] CHEMISTRY Site Art Right Ra (11/18/2013 16:53:00) 11/18/2013 Normal [facility] CHEMISTRY Temp Art 37.0 Franci 11/18/2013 [facility] CHEMISTRY Allens Art Positive (11/18/2013 16:53:00) 11/18/2013 Normal [facility] CHEMISTRY Mode Art NC (11/18/2013 16:53:00) 11/18/2013 Normal [facility] CHEMISTRY FiO2 Art 36.0 11/18/2013 [facility] HEMATOLOGY MPV 7.2 fL 7.4 - 10.4 11/18/2013 LOW [facility] HEMATOLOGY Platelet 187 K/CMM 133 - 450 11/18/2013 Normal [facility] HEMATOLOGY RDW 19.5 % 11.5 - 14.5 11/18/2013 [facility] HEMATOLOGY MCH 26.8 pg 27.0 - 31.0 11/18/2013 LOW [facility] HEMATOLOGY MCV 86.6 fL 81.0 - 99.0 11/18/2013 Normal [facility] HEMATOLOGY MCHC 31.0 g/dL 32.0 - 36.0 11/18/2013 LOW [facility] HEMATOLOGY Hct 34.4 % 36.0 - 48.0 11/18/2013 LOW [facility] HEMATOLOGY Hgb 10.6 g/dL 12.0 - 16.0 11/18/2013 LOW [facility] HEMATOLOGY RBC X 10x6 3.97 M/CMM 4.20 - 5.40 11/18/2013 LOW [facility] HEMATOLOGY WBC X 10x3 6.8 K/CMM 3.7 - 10.4 11/18/2013 Normal [facility] HEMATOLOGY Basophils # 0.0 K/CMM 0.0 - 0.2 11/18/2013 Normal [facility] HEMATOLOGY Monocytes 0.4 % 2.0 - 12.0 11/18/2013 LOW [facility] HEMATOLOGY Lymphocytes 5.0 % 20.0 - 40.0 11/18/2013 LOW [facility] HEMATOLOGY Segs 94.3 % 45.0 - 75.0 11/18/2013 HI [facility] HEMATOLOGY Monocytes # 0.0 K/CMM 0.0 - 0.8 11/18/2013 Normal [facility] HEMATOLOGY Eosinophils # 0.0 K/CMM 0.0 - 0.5 11/18/2013 Normal [facility] HEMATOLOGY Lymphocytes # 0.3 K/CMM 1.0 - 5.5 11/18/2013 LOW [facility] HEMATOLOGY Segs-Bands # 6.4 K/CMM 1.5 - 8.1 11/18/2013 Normal [facility] HEMATOLOGY Basophils 0.3 % 0.0 - 1.0 11/18/2013 Normal [facility] HEMATOLOGY Eosinophils 0.0 % 0.0 - 4.0 11/18/2013 Normal [facility] CHEMISTRY Cortisol 23.4 ug/dl 3.0 - 23.0 11/17/2013 [facility] 15Interpretive Data: CORD BLOOD: 5 - 17 ug/dL PREMATURE INFANTS: 26-28 weeks, day 4 1 - 11 ug/dL 31-35 weeks, day 4 2.5 - 9.1 ug/dL FULL TERM INFANTS: 3 days 1.7 - 14 ug/dL 1-7 days 2 - 11 ug/dL 1-12 months 2.8 - 23 ug/dL CHILDREN (1 - 16 years) 3 - 21 ug/dL ADULT RANGE: 8AM 6.0 - 23.0 ug/dL 4PM 3.0 - 16.0 ug/dL [facility] CHEMISTRY Uric Acid 4.4 mg/dL 2.5 - 7.0 11/17/2013 Normal [facility] CHEMISTRY Aldosterone 5 ng/dL 11/17/2013 10Result Comment: Adult Reference Ranges for Aldosterone, LC/MS/MS: Upright 8:00-10:00 am < or=28 ng/dL Upright 4:00-6:00 pm < or=21 ng/dL Supine 8:00-10:00 am 3-16 ng/dL Test Performed at: [facility] [address] [place] [id number] Roula Rendon MD, PhD [facility] CHEMISTRY ALANINE AMINOTRANSFERASE 15 unit/L 0 - 65 11/17/2013 Normal [facility] CHEMISTRY Total Protein 6.1 g/dL 6.4 - 8.4 11/17/2013 LOW [facility] CHEMISTRY Albumin Lvl 2.4 g/dL 3.5 - 5.0 11/17/2013 LOW [facility] CHEMISTRY Alk Phos 128 unit/L 39 - 136 11/17/2013 Normal [facility] CHEMISTRY Globulin 3.7 g/dL 2.0 - 4.0 11/17/2013 Normal [facility] CHEMISTRY A/G Ratio 0.6 0.7 - 1.6 11/17/2013 LOW [facility] CHEMISTRY ASPARTATE TRANSAMINASE 26 unit/L 0 - 37 11/17/2013 Normal [facility] CHEMISTRY Bili Total 0.8 mg/dL 0.2 - 1.3 11/17/2013 Normal [facility] CHEMISTRY Bili Direct 0.5 mg/dL 0.0 - 0.3 11/17/2013 [facility] CHEMISTRY Bili Indirect 0.3 mg/dL 0.0 - 1.0 11/17/2013 Normal [facility] CHEMISTRY Osmolality 298 mOsm/kg 280 - 300 11/17/2013 Normal [facility] CHEMISTRY U Protein 107.4 mg/dL 11/16/2013 17Interpretive Data: No established reference ranges. [facility] CHEMISTRY U Creatinine 86.1 mg/dL 11/16/2013 16Interpretive Data: No established reference ranges. [facility] CHEMISTRY U Eos None Seen (11/16/2013 12:30:00) None Seen 11/16/2013 Normal [facility] CHEMISTRY U Sodium 11 meq/L 11/16/2013 18Interpretive Data: No established reference ranges. [facility] CHEMISTRY U Osmolality 314 mOsm/kg 300 - 800 11/16/2013 Normal [facility] CHEMISTRY U Prot/Creat 1.2 11/16/2013 [facility] CHEMISTRY CK-MB INDEX 2.4 0.0 - 2.5 11/15/2013 Normal [facility] CHEMISTRY BNP 605 pg/mL <=100 11/15/2013 [facility] 12Interpretive Data: Elevated results are in line with increasing severity of congestive heart failure. Minor elevations between 100 and 300 may be seen with Myocardial Ischemia, Sodium retaining drugs, and compensated/treated heart failure. [facility] CHEMISTRY Digoxin Lvl 1.7 ng/mL 0.8 - 2.0 11/15/2013 Normal [facility] CHEMISTRY Troponin-I 0.13 ng/mL 0.00 - 0.40 11/15/2013 Normal [facility] CHEMISTRY Total CK 116 unit/L 12 - 191 11/15/2013 Normal [facility] CHEMISTRY ASPARTATE TRANSAMINASE 24 unit/L 0 - 37 11/15/2013 Normal [facility] CHEMISTRY Alk Phos 138 unit/L 39 - 136 11/15/2013 HI [facility] CHEMISTRY Bili Total 0.9 mg/dL 0.2 - 1.3 11/15/2013 Normal [facility] CHEMISTRY ALANINE AMINOTRANSFERASE 14 unit/L 0 - 65 11/15/2013 Normal [facility] CHEMISTRY Albumin Lvl 2.3 g/dL 3.5 - 5.0 11/15/2013 LOW [facility] CHEMISTRY A/G Ratio 0.5 0.7 - 1.6 11/15/2013 LOW [facility] CHEMISTRY Globulin 4.2 g/dL 2.0 - 4.0 11/15/2013 HI [facility] CHEMISTRY Total Protein 6.5 g/dL 6.4 - 8.4 11/15/2013 Normal [facility] CHEMISTRY B/C Ratio 33 6 - 25 11/15/2013 [facility] CHEMISTRY CK MB 2.8 ng/mL 0.5 - 3.6 11/15/2013 Normal [facility] HEMATOLOGY INR 1.11 0.85 - 1.17 11/15/2013 Normal 20Interpretive Data: RECOMMENDED RANGES FOR PROTIME INR: 2.0-3.0 for most medical and surgical thromboembolic states. 2.5-3.5 for artificial heart valves and recurrent embolism. INR SHOULD BE USED ONLY FOR PATIENTS ON STABLE ANTICOAGULANT THERAPY. [facility] HEMATOLOGY PROTIME 14.2 s 12.0 - 14.7 11/15/2013 Normal [facility] Chest 1view Chest 1view EXAM: Portable chest x-ray. HISTORY: PICC line. COMPARISON: 11/11/2013. TECHNIQUE: Portable frontal view of the chest. FINDINGS: New right arm PICC line tip is suboptimally visualized in the region of the proximal SVC. Stable perihilar interstitial prominence bilaterally and cardiomegaly. New airspace disease peripheral right lung base may reflect pneumonia. Probable small right pleural effusion. Calcified granuloma right midlung. SL: 14 11/15/2013 - - Read by: Luis Daniel Thayer Dictated Date/time: 11/15/13 03:04 Electronically Signed by: Luis Daniel Thayer MD 11/15/13 03:06 FINAL REPORT [facility] CHEMISTRY B/C Ratio 32 6 - 25 11/15/2013 HI [facility] HEMATOLOGY Plt Morph Normal (11/14/2013 19:11:00) 11/15/2013 Normal [facility] HEMATOLOGY RBC Morph Normal (11/14/2013 19:11:00) 11/15/2013 Normal [facility] IMMUNOLOGY Prealbumin 8.7 mg/dL 18.0 - 45.0 11/14/2013 LOW [facility] CHEMISTRY BNP 1574 pg/mL <=100 11/14/2013 [facility] 13Interpretive Data: Elevated results are in line with increasing severity of congestive heart failure. Minor elevations between 100 and 300 may be seen with Myocardial Ischemia, Sodium retaining drugs, and compensated/treated heart failure. [facility] CHEMISTRY FTI 3.2 11/12/2013 [facility] CHEMISTRY CK-MB INDEX 3.5 0.0 - 2.5 11/12/2013 HI [facility] CHEMISTRY Troponin-I 0.03 ng/mL 0.00 - 0.40 11/12/2013 Normal [facility] CHEMISTRY CK MB 1.5 ng/mL 0.5 - 3.6 11/12/2013 Normal [facility] CHEMISTRY Total CK 43 unit/L 12 - 191 11/12/2013 Normal [facility] CHEMISTRY Vitamin D2 1,25 (OH)2 null 11/12/2013 11Result Comment: Vitamin D2, 1,25 (OH)2: Reference ranges are established for total 1,25-dihydroxy vitamin D. Values for subcomponents D2 (derived from plant or fungal sources) and D3 (derived from human or animal sources) are provided for informational purposes only. This test(s) was developed and its performance characteristics have been determined by [facility], [place], [place]. Performance characteristics refer to the analytical performance of the test. Test Performed at: [facility], [address] [place] [phone] Rony Patel MD, FCAP [facility] CHEMISTRY Vitamin D3 1,25 (OH)2 19 pg/mL 11/12/2013 [facility] CHEMISTRY Vitamin D 1,25 (OH)2 Total 19 pg/mL 18 - 72 11/12/2013 [facility] CHEMISTRY Hgb A1C 6.0 % <=5.6 11/12/2013 HI [facility] CHEMISTRY T3 Uptake 32 % 31 - 39 11/12/2013 Normal [facility] CHEMISTRY T4 10.1 ug/dl 4.7 - 13.3 11/12/2013 Normal [facility] CHEMISTRY TSH 1.570 uIU/mL 0.360 - 3.740 11/12/2013 Normal [facility] HEMATOLOGY aPTT 31.3 s 22.9 - 35.8 11/12/2013 Normal 23Interpretive Data: Heparin Therapeutic Range: 57 - 92 Seconds [facility] HEMATOLOGY INR 1.10 0.85 - 1.17 11/12/2013 Normal 21Interpretive Data: RECOMMENDED RANGES FOR PROTIME INR: 2.0-3.0 for most medical and surgical thromboembolic states. 2.5-3.5 for artificial heart valves and recurrent embolism. INR SHOULD BE USED ONLY FOR PATIENTS ON STABLE ANTICOAGULANT THERAPY. [facility] HEMATOLOGY PROTIME 14.1 s 12.0 - 14.7 11/12/2013 Normal [facility] Chest w contrast CT Chest w contrast CT EXAM: CT CHEST WITH CONTRAST. CLINICAL INFORMATION: Mass. COMPARISON: Chest radiograph of 11/11/2013. TECHNIQUE: Axial images obtained of the thorax with IV contrast. FINDINGS: A small low-density right thyroid lobe nodule is present. Mild cardiomegaly. No pericardial effusion. The main pulmonary artery is enlarged measuring 3.2 cm. Extensive mediastinal and hilar adenopathy are present. A 1.2 cm calcified granuloma is present within the right middle lobe. Small right pleural effusion and trace left pleural effusion are present. Nonspecific mild lateral right middle lobe airspace opacity is present. Diffusely prominent interstitial lung markings are present may represent pulmonary edema. Cirrhotic liver. Punctate splenic calcified granulomas are present. Diffusely fatty atrophic pancreas. Diffuse body wall edema/anasarca. Diffuse osteopenia and DJD of the spine. IMPRESSION: 1. Extensive mediastinal and hilar adenopathy. Etiology is indeterminate. 2. Mild cardiomegaly. Enlarged main pulmonary artery suggesting pulmonary arterial hypertension. 3. Small right pleural effusion and trace left pleural effusion are present. Diffusely prominent interstitial lung markings are present may represent pulmonary edema. Additional nonspecific mild lateral right middle lobe airspace opacity may represent pulmonary edema or pneumonia. Please correlate for component of cardiac decompensation. 4. A small low-density right thyroid lobe nodule. SL: 12 11/12/2013 - - Read by: Michael Oliveira Dictated Date/time: 11/12/13 15:46 Electronically Signed by: Michael Oliveira MD 11/12/13 16:14 FINAL REPORT [facility] CHEMISTRY CK-MB INDEX 2.6 0.0 - 2.5 11/12/2013 HI [facility] CHEMISTRY Troponin-I 0.02 ng/mL 0.00 - 0.40 11/12/2013 Normal [facility] CHEMISTRY CK MB 1.5 ng/mL 0.5 - 3.6 11/12/2013 Normal [facility] CHEMISTRY Total CK 57 unit/L 12 - 191 11/12/2013 Normal [facility] CHEMISTRY CHD Risk 5.81 3.90 - 5.80 11/12/2013 [facility] CHEMISTRY HDL 27 mg/dL >=61 11/12/2013 LOW [facility] CHEMISTRY Chol 157 mg/dL <=199 11/12/2013 Normal [facility] CHEMISTRY Trig 153 mg/dL <=149 11/12/2013 HI [facility] CHEMISTRY LDL (Calculated) 99 mg/dL <=99 11/12/2013 Normal [facility] CHEMISTRY TSH 1.820 uIU/mL 0.360 - 3.740 11/12/2013 Normal [facility] CHEMISTRY BNP 1325 pg/mL <=100 11/11/2013 [facility] 14Interpretive Data: Elevated results are in line with increasing severity of congestive heart failure. Minor elevations between 100 and 300 may be seen with Myocardial Ischemia, Sodium retaining drugs, and compensated/treated heart failure. [facility] URINALYSIS UA Color Anamaria 11/11/2013 [facility] URINALYSIS UA Blood Large *ABN* (11/11/2013 17:18:00) Negative 11/11/2013 ABN [facility] URINALYSIS UA Bili Negative *NA* (11/11/2013 17:18:00) Negative 11/11/2013 [facility] URINALYSIS UA Ketones Negative mg/dL Negative 11/11/2013 [facility] URINALYSIS UA Glucose Negative mg/dL Negative 11/11/2013 [facility] URINALYSIS UA RBC 106 /HPF 0 - 2 11/11/2013 [facility] URINALYSIS UA WBC 5 /HPF 0 - 5 11/11/2013 Normal [facility] URINALYSIS UA Leuk Est Trace *ABN* (11/11/2013 17:18:00) Negative 11/11/2013 ABN [facility] URINALYSIS UA Nitrite Negative (11/11/2013 17:18:00) Negative 11/11/2013 Normal [facility] URINALYSIS UA Urobilinogen 4.0 mg/dL 0.1 - 1.0 11/11/2013 HI [facility] URINALYSIS UA Hyal Cast 10 /LPF 0 - 2 11/11/2013 HI [facility] URINALYSIS UA Mucus Few /LPF None Seen 11/11/2013 [facility] URINALYSIS UA Bacteria Many /HPF None Seen 11/11/2013 ABN [facility] URINALYSIS UA Sq Epi None Seen 11/11/2013 [facility] URINALYSIS UA Protein 100 mg/dL Negative 11/11/2013 ABN [facility] URINALYSIS UA pH 5.0 5.0 - 8.0 11/11/2013 Normal [facility] URINALYSIS UA Spec Grav 1.020 <=1.030 11/11/2013 Normal [facility] URINALYSIS UA Turbidity Marked *ABN* (11/11/2013 17:18:00) Clear 11/11/2013 ABN [facility] Chest 2 views Chest 2 views PROCEDURE: Chest 2 views REASON FOR EXAM: See Clinic Indication CLINICAL INDICATION: Chest tightness COMPARISON: 10/27/2013. FINDINGS: No change of the calcified granuloma within the right lower lobe and right hilar fullness. Mildly atelectasis or scarring. No significant pleural effusion or pneumothorax. Stable moderate cardiomegaly. Diffuse osteopenia and DJD of the spine. SL: 12 11/11/2013 - - Read by: Michael Oliveira Dictated Date/time: 11/11/13 17:49 Electronically Signed by: Michael Oliveira MD 11/11/13 17:54 FINAL REPORT [facility] Chest 2 views Chest 2 views CHEST RADIOGRAPHY CLINICAL HISTORY: Cough. COMPARISON IMAGIN11/24/2012 radiography. FINDINGS: Two views of the chest were acquired and submitted for evaluation. Tiny bilateral pleural effusions are suspected. The cardiac silhouette is mild to moderately enlarged. The previously seen 11 mm calcified right lung nodule is again noted. Fullness is present at the right hilum. Bilateral perihilar and lower lung consolidation with interstitial thickening suggests mild pulmonary edema. Pulmonary infection and hemorrhage cannot be excluded. Bones appear demineralized. DEXA scan should be considered if not already performed. IMPRESSION: Findings suggestive of early congestive heart failure. Right hilar fullness concerning for a mass, lymphadenopathy, or artifact. Chest CT is recommended. 10/27/2013 - - Read by: Cristian Bee Dictated Date/time: 10/27/13 14:35 Electronically Signed by: Cristian Bee MD 10/27/13 14:38 FINAL REPORT [facility] Vital Signs Vital Sign Value Date Comments Source Weight 272 10/30/2018 [facility] Height 63 10/30/2018 Matthew Browning Temperature Oral (F) 98.0 F 10/30/2018 Matthew [facility] Heart Rate 88 10/30/2018 Matthew Browning Diastolic (mm Hg) 98 10/30/2018 Matthew Browning Systolic (mm Hg) 158 10/30/2018 Matthew Browning Diastolic (mm Hg) 70 11/28/2013 [facility] Systolic (mm Hg) 126 11/28/2013 [facility] Heart Rate 89 11/28/2013 [facility] Respitory Rate 16 11/28/2013 [facility] Diastolic (mm Hg) 75 11/28/2013 [facility] Systolic (mm Hg) 126 11/28/2013 [facility] Respitory Rate 16 11/28/2013 [facility] Heart Rate 85 11/28/2013 [facility] Temperature Oral (F) 97.9 F 11/28/2013 [facility] Diastolic (mm Hg) 66 11/27/2013 [facility] Systolic (mm Hg) 104 11/27/2013 [facility] Temperature Oral (F) 98.2 F 11/27/2013 [facility] Respitory Rate 16 11/27/2013 [facility] Heart Rate 82 11/27/2013 [facility] Temperature Oral (F) 98.5 F 11/27/2013 [facility] Weight 137.443 11/12/2013 [facility] Height 165.1 cm 11/11/2013 [facility] Weight 130.909 11/11/2013 [facility] Encounters Location Location Details Encounter Type Encounter Number Reason For Visit Attending Provider ADM Date DC Date Status Source [facility] Inpatient [id number] DAIJA TERMINELLA 11/12/2013 11/28/2013 Active [facility] [id number] Danny Palacios 02/19/2017 02/20/2017 [facility] [place] [facility] [id number] Danny Palacios 03/20/2019 03/21/2019 [facility] [place] Procedures Procedure Code Date Perfomer Comments Source Oophorectomy [id number] [facility] [place] Tonsillectomy [id number] [facility] [place] Oophorectomy [id number] [facility] Tonsillectomy [id number] [facility]
--- OUTSIDE RECORDS SUMMARY | 2019-04-01 15:00 | XMS REPORT | Summary of Care ---
Author Author [facility] [place] Organization [facility] [place] Address Unknown Phone Unavailable Encounter HQ Mery(FIN) [id number] Date(s): 03/20/19 - 03/20/19 [facility] [place] [address] [place] [phone] Discharge Disposition: Home or Self Care Attending Physician: Danny Palacios MD Referring Physician: Danny Palacios MD Vital Signs No data available for this section Problem List Condition Effective Dates Status Health Status Informant CHF (congestive 11/11/13 Active heart failure)(Confirmed) DM - Diabetes Active mellitus(Confirmed) Gout, Active arthritis(Confirmed) HTN Active (hypertension)(Confi rmed) Allergies, Adverse Reactions, Alerts No Known Medication Allergies Medications No data available for this section Results No data available for this section Immunizations Given and Recorded Vaccine Date Status Refusal Reason influenza virus vaccine, inactivated1 11/27/13 Given pneumococcal 23-valent vaccine 11/12/13 Given 1Admin Note: recvd 10/30/13 at 's office Procedures Procedure Date Related Diagnosis Body Site Status Oophorectomy Completed Tonsillectomy Completed Social History Social History Type Response Smoking Status Former smoker; Type: Cigarettes; Previous treatment: Counseling; Ready to change: No; Concerns about tobacco use in household: No; Exposure to Tobacco Smoke None; Cigarette Smoking Last 365 Days No; Reg Smoking Cessation Counseling Yes; Tobacco use per day: 0; Number of years: 0; Total pack years: 00; entered on: 11/12/13 Assessment and Plan No data available for this section
--- OUTSIDE RECORDS SUMMARY | 2019-04-01 15:01 | XMS REPORT ---
Author Author Johnny Browning [facility] e[employer] Address Unknown Phone Unavailable Care Team Providers Care Jewel Hole Cornerer Name Role Phone Johnny Browning CP Unavailable Allergies, Adverse Reactions, Alerts Substance Reaction Event Type N.K.D.A. 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 Problem Primary osteoarthritis involving multiple joints M15.0 Active Problem Abnormal laboratory test R89.9 Active Problem Age-related osteoporosis without current pathological fracture M81.0 Active Problem Idiopathic gout of foot, unspecified chronicity, unspecified laterality M10.079 Active Problem Polyarthralgia M25.50 Active Problem Positive ALLEN (antinuclear antibody) R76.8 Active Medications Medication Code System Code Instructions Start Date End Date Status Dosage Atorvastatin Calcium ND 43973778892 35mg Orally Once a day Active 1 tablet Allopurinol ND 95960580324 100 MG Orally Once a day Active 1 tablet Aspir-81 ND 46454993107 81 MG Orally Once a day Active 1 tablet Losartan Potassium ND 60382988350 100 MG Orally Once a day Active 1 tablet Furosemide ND 38260460094 80 MG Orally Once a day Active 1 tablet Gabapentin ND 04010546698 400 MG Orally Twice a day Active 1 capsule Tolterodine Tartrate ND 03468592149 2 MG Orally Twice a day Active 1 tablet Tramadol NDC 0 50 mg orally tid prn for pain Oct 30, 2018 March 29, 2019 Active one tab Alendronate Sodium ND 28411254458 35 MG Orally q week Active 1 tablet Citalopram Hydrobromide ND 26921189583 10 MG Orally Once a day Active 1 tablet Tramadol HCl ND 30951407003 50 MG Orally every 6 hrs Active 1 tablet as needed Carvedilol [facility] 35267162306 12.5 MG Orally once a day Active 1 tablet Vital Signs Date/Time: Oct 30, 2018 BMI 48 Index Weight 272 lbs Height 63 in Temperature 98.0 F Cardiac Monitoring Heart Rate 88 /min Blood Pressure Diastolic 98 mm Hg Blood Pressure Systolic 158 mm Hg Results Name Result Date Reference Range Unit Abnormality Flag PAIN MGMT, TRAMADOL, QN,W/medMATCH,U ----medMATCH Desmethyltram CONSISTENT 20181030 ----Tramadol 1198 12043279 <100 ng/mL H ----medMATCH Tramadol CONSISTENT 20181030 ----Prescribed Drug 1 Tramadol 20181030 ----Desmethyltramadol 654 40898375 <100 ng/mL H PAIN MGMT, GABAPENTIN, QN,W/medMATCH,U ----Prescribed Drug 1 Tramadol 20181030 ----medMATCH Gabapentin INCONSISTENT 20181030 ----Gabapentin 478232 81837533 <1000 ng/mL H PAIN MGMT, PREGABALIN, QN,W/medMATCH,U ----Prescribed Drug 1 Tramadol 20181030 ----Pregabalin NEGATIVE 03358465 <1000 ng/mL ----medMATCH Pregabalin CONSISTENT 20181030 ZOLPIDEM, QUANTITATIVE, URINE ----ZOLPIDEM METABOLITE NEGATIVE 20181030 <5 ng/mL ----ZOLPIDEM NEGATIVE 56325550 <5 ng/mL PAIN MGMT, CARISOPRODOL METAB,QN,W/medMATCH,U ----medMATCH Meprobamate CONSISTENT 20181030 N ----Meprobamate NEGATIVE 99915027 <1000 ng/mL N ----Prescribed Drug 1 Tramadol 20181030 PAIN MGMT, FENTANYL, QN,W/medMATCH,U ----Prescribed Drug 1 Tramadol 20181030 ----Fentanyl NEGATIVE 20181030 <0.5 ng/mL N ----medMATCH Fentanyl CONSISTENT 20181030 N ----Norfentanyl NEGATIVE 20181030 <0.5 ng/mL N ----medMATCH Norfentanyl CONSISTENT 20181030 N PAIN MGMT,TRICYCLIC ANTI DEPRESS,QN,W/medMATCH,U ----medMATCH Nortriptyline CONSISTENT 20181030 ----Nortriptyline NEGATIVE 76128133 <100 ng/mL ----medMATCH Amitriptyline CONSISTENT 20181030 ----Amitriptyline NEGATIVE 17148669 <100 ng/mL ----Prescribed Drug 1 Tramadol 20181030 PAIN MANAGEMENT PROFILE 1 W/CONF, W/DL, URINE ----pH 5.7 12489239 4.5-9.0 N ----Creatinine 77.7 14543833 > or=20.0 mg/dL N ----Amphetamines NEGATIVE 84377873 <500 ng/mL N ----Oxidant NEGATIVE 53466411 <200 mcg/mL N ----Barbiturates NEGATIVE 29494591 <300 ng/mL N ----medMATCH Amphetamines CONSISTENT 20181030 N ----Benzodiazepines NEGATIVE 92368004 <100 ng/mL N ----medMATCH Barbiturates CONSISTENT 05865993 N ----medMATCH Benzodiazepines CONSISTENT 20181030 N ----medMATCH Marijuana Metab CONSISTENT 20181030 N ----Marijuana Metabolite NEGATIVE 85552315 <20 ng/mL N ----medMATCH Cocaine Metab CONSISTENT 20181030 N ----medMATCH Phencyclidine CONSISTENT 20181030 N ----Cocaine Metabolite NEGATIVE 84974712 <150 ng/mL N ----Phencyclidine NEGATIVE 24228221 <25 ng/mL N ----medMATCH Methadone Metab CONSISTENT 20181030 N ----Prescribed Drug 1 Tramadol 20181030 ----medMATCH Oxycodone CONSISTENT 20181030 N ----Methadone Metabolite NEGATIVE 35098327 <100 ng/mL N ----Oxycodone NEGATIVE 26393663 <100 ng/mL N ----Opiates NEGATIVE 86479931 <100 ng/mL N ----medMATCH Opiates CONSISTENT 20181030 N Summary Purpose eClinicalWorks Submission
--- OUTSIDE RECORDS SUMMARY | 2019-04-01 15:01 | XMS REPORT | CCD ---
Author Author Auto Generated Organization [facility] Address Unknown Phone Unavailable Care Team Providers Care Apron Worker Name Role Phone Porfirio Santos CP Allergies, Adverse Reactions, Alerts Substance Reaction Status NKDA Active Problem List Condition Effective Dates Status CHF (congestive heart failure) 11/11/2013 Active DM - Diabetes mellitus Active Gout, arthritis Active HTN (hypertension) Active Medications Medication Instructions Start Date End Date Status Dulcolax Laxative 10 mg, 1 supp, Route: AK, Drug 11/21/2013 11/21/2013 Completed form: SUPP, ONCE, Dosing Weight 137.443, kg, PRN Constipation, Start date: 11/21/13 10:28:00(Same As: Dulcolax, Bisco-Lax) Saline Flush 0.9% 5 ml, Route: IVP, Drug Form: INJ, 11/11/2013 11/28/2013 Discontinued Dosing Weight 130.909, kg, PRN, PRN Line Flush, Start date: 11/11/13 23:50:00, Duration: 30 day, Stop date: 12/11/13 23:49:00(Same as: BD Posiflush) LORazepam 0.5 mg 0.5 mg=1 tab, PO, BID, Anxiety, # 11/27/2013 Ordered oral tablet 50 tab, 0 Refill(s) Lidoderm 5% topical 1 patch, TOP, Daily, Remove after 11/27/2013 Ordered film (patch) 12 hours, # 30 patch, 0 Refill(s) Remove after 12 hours pneumococcal 0.5 ml, Route: IM, Drug Form: INJ, 11/12/2013 11/12/2013 Completed 23-valent vaccine Start date: 11/12/13 9:00:00, Stop date: 11/12/13 9:00:00 docusate sodium 100 100 mg=1 cap, PO, BID, 11/27/2013 Ordered mg oral capsule Constipation, # 60 cap, 0 Refill(s) furosemide 40 mg 160 mg=4 tab, PO, After Lunch, # 11/27/2013 Ordered oral tablet 120 tab, 0 Refill(s) magnesium sulfate 2 2 gm, 50 mL, Route: IVPB, Drug 11/21/2013 11/21/2013 Completed gm in Water 50 ml form: INJ, ONCE, Dosing Weight 137.443, kg, Start date: 11/21/13 10:45:00, Duration: 2 hr, Stop date: 11/21/13 10:45:00 enoxaparin 40 mg/0.4 40 mg=0.4 mL, SUB-Q, [id number], # 11/27/2013 Ordered mL subcutaneous 1,200 mL, 0 Refill(s) solution Valium 10 mg, Route: PO, ONCE, Dosing 11/11/2013 11/11/2013 Completed Weight 130.909, kg, Priority: STAT, Start date: 11/11/13 22:49:00, Stop date: 11/11/13 22:49:00 DuoNeb inhalation 3 ml, Route: INHALATION, Drug Form: 11/15/2013 11/28/2013 Discontinued solution SOLN, Dosing Weight 137.443, kg, PRN, PRN Wheezing, Start date: 11/15/13 13:02:00, Duration: 30 day, Stop date: 12/15/13 13:01:00(Same as: Duoneb) Protonix 40 mg, 1 tab, Route: PO, Drug form: 11/12/2013 11/28/2013 Discontinued ECTAB, Before Dinner, Start date: 11/12/13 16:30:00, Duration: 30 day, Stop date: 12/11/13 16:30:00Tablet should not be chewed or crushed.(Same as: Protonix) Lovenox 40 mg, 0.4 mL, Route: SUB-Q, Drug 11/12/2013 11/28/2013 Discontinued form: INJ, [id number], Dosing Weight 130.909, kg, Start date: 11/12/13 0:00:00, Duration: 30 day, Stop date: 12/11/13 0:00:00(Same as: Lovenox) pantoprazole 40 mg, Route: IVP, Drug form: INJ, 11/11/2013 11/12/2013 Discontinued Before Dinner, Dosing Weight 130.909, kg, Priority: STAT, Start date: 11/11/13 23:50:00, Duration: 30 day, Stop date: 12/11/13 16:30:00For IV push reconstitute with 10 ml 0.9% sodium chloride and push over 2 minutes. (Same as: Protonix) ondansetron 4 mg, 2 mL, Route: IVP, Drug form: 11/11/2013 11/28/2013 Discontinued INJ, Q8H, Dosing Weight 130.909, kg, PRN Nausea & Vomiting, Start date: 11/11/13 23:50:00, Duration: 30 day, Stop date: 12/11/13 23:49:00(Same as: Zofran) docusate 100 mg, 1 cap, Route: PO, Drug 11/11/2013 11/28/2013 Discontinued form: CAP, BID, Dosing Weight 130.909, kg, PRN Constipation, Start date: 11/11/13 23:50:00, Duration: 30 day, Stop date: 12/11/13 23:49:00(Same as: Colace) (Do Not Crush) acetaminophen 650 mg, 20.3 mL, Route: PO, Drug 11/11/2013 11/28/2013 Discontinued form: LIQ, Q4H, Dosing Weight 130.909, kg, PRN Pain 1-3/Temp > 100.4 F, Start date: 11/11/13 23:50:00, Duration: 30 day, Stop date: 12/11/13 23:49:00Max [id number]/day (4 gm/day). (Same as: Tylenol) sterile water 600 mL 600 mL, 50 ml/hr, Route: IV, Drug 11/15/2013 11/17/2013 Discontinued + Dextrose 50% in Form: INJ, Dosing Weight 137.443, Water IV 400 mL + kg, Continuous, Start date: sodium chloride 154 11/15/13 2:35:00 mEq [place] 5/325 oral 1 tab, PO, Q6H, Pain, # 120 tab, 0 11/27/2013 Ordered tablet Refill(s) allopurinol 300 mg 300 mg=1 tab, PO, Daily, # 30 tab, 11/11/2013 Ordered oral tablet 0 Refill(s) Remove - lidocaine 1 patch, Route: TOP, Bedtime, Drug 11/27/2013 11/28/2013 Discontinued topical patch form: ERFILM, Start date: 11/27/13 21:00:00, Duration: 30 day, Stop date: 12/26/13 21:00:00 Lasix 20 mg, 2 mL, Route: IVP, Drug form: 11/19/2013 11/22/2013 Discontinued INJ, BID, Dosing Weight 137.443, kg, Start date: 11/19/13 17:00:00, Duration: 30 day, Stop date: 12/19/13 9:00:00(Same as: Lasix) metFORMIN 500 mg 500 mg=1 tab, PO, BID, # 60 tab, 0 11/27/2013 Ordered oral tablet Refill(s) d50 syringe 25 gm, 50 mL, Route: IVP, Drug 11/13/2013 11/13/2013 Completed Form: INJ, Dosing Weight 137.443, kg, ONCE, Start date: 11/13/13 17:14:00, Stop date: 11/13/13 17:14:00 Actos 45 mg oral 45 mg=1 tab, PO, Daily, # 30 tab, 0 11/11/2013 11/27/2013 Discontinued tablet Refill(s) glimepiride 4 mg 4 mg=1 tab, PO, BID, # 30 tab, 0 11/11/2013 11/27/2013 Discontinued oral tablet Refill(s) diazepam 10 mg oral 10 mg=1 tab, PO, TID, Anxiety, 0 11/11/2013 11/27/2013 Discontinued tablet Refill(s) metFORmin 500 mg 1,000 mg=2 tab, PO, BID, # 60 tab, 11/11/2013 11/27/2013 Discontinued oral tablet 0 Refill(s) Spiriva 18 mcg 1 ea, Route: INHALATION, Drug form: 11/13/2013 11/28/2013 Discontinued inhalation capsule CAP, Daily, Dosing Weight 137.443, kg, Start date: 11/13/13 9:00:00, Duration: 30 day, Stop date: 12/12/13 9:00:00(Same As: Spiriva). Coreg 3.125 mg, 1 tab, Route: PO, Drug 11/12/2013 11/28/2013 Discontinued form: TAB, Q12H, Dosing Weight 137.443, kg, Start date: 11/12/13 21:00:00, Duration: 30 day, Stop date: 12/12/13 9:00:00Give with food. (Same As: Coreg) Lasix 80 mg, 8 mL, Route: IV, Drug form: 11/24/2013 11/26/2013 Discontinued INJ, Q8H, Dosing Weight 137.443, kg, Start date: 11/24/13 16:00:00, Duration: 30 day, Stop date: 12/24/13 8:00:00(Same as: Lasix) Vesicare 10mg 5 mg, Route: PO, Daily, Dosing 11/26/2013 11/25/2013 Deleted Weight 137.443, kg, Start date: 11/26/13 9:00:00, Duration: 30 day, Stop date: 12/25/13 9:00:00 Sodium Chloride 0.9% 1,000 mL, Rate: 100 ml/hr, Infuse 11/15/2013 11/15/2013 Deleted IV 1000 mL + over: 10 hr, Route: IV, Dosing Dextrose 70% in Weight 137.443 kg, Total Volume: Water IV 500 ml 1,000, Start date: 11/15/13 13:28:00, Duration: 30 day, Stop date: 12/15/13 13:27:00 Saline Flush 0.9% 5 ml, Route: IVP, Drug Form: INJ, 11/17/2013 11/17/2013 Deleted Dosing Weight 137.443, kg, PRN, PRN Line Flush, Start date: 11/17/13 14:50:00, Duration: 30 day, Stop date: 12/17/13 14:49:00 Saline Flush 0.9% 5 ml, Route: IVP, Drug Form: INJ, 11/17/2013 11/23/2013 Discontinued Dosing Weight 137.443, kg, Q12H, Start date: 11/17/13 21:00:00, Duration: 30 day, Stop date: 12/17/13 9:00:00Same as: BD Posiflush Sterile nitroglycerin SL Tab 0.4 mg, Route: SL, Drug form: TAB, 11/17/2013 11/17/2013 Deleted Q5Min, Dosing Weight 137.443, kg, PRN Chest Pain, Start date: 11/17/13 14:50:00, Duration: 3 doses or times, Stop date: Limited # of times allopurinol 300 mg, 1 tab, Route: PO, Drug 11/12/2013 11/28/2013 Discontinued form: TAB, Daily, Dosing Weight 137.443, kg, Start date: 11/12/13 11:00:00, Duration: 30 day, Stop date: 12/12/13 9:00:00(Same as: Zyloprim) D10W 1000 mL 1,000 mL, Rate: 100 ml/hr, Infuse 11/14/2013 11/15/2013 Discontinued over: 10 hr, Route: IV, Dosing Weight 137.443 kg, Total Volume: 1,000, Start date: 11/14/13 16:28:00, Duration: 30 day, Stop date: 12/14/13 16:27:00 Detrol LA 4 mg, 1 cap, Route: PO, Drug form: 11/26/2013 11/28/2013 Discontinued CAP, Q24H, Start date: 11/26/13 9:00:00, Duration: 30 day, Stop date: 12/25/13 9:00:00Do Not Crush. (Same As: Detrol LA) tramadol 100 mg, Route: PO, Drug form: TAB, 11/11/2013 11/11/2013 Completed ONCE, Dosing Weight 130.909, kg, Start date: 11/11/13 19:20:00, Stop date: 11/11/13 19:20:00 DuoNeb inhalation 3 ml, Route: INHALATION, Drug Form: 11/14/2013 11/15/2013 Discontinued solution SOLN, Dosing Weight 137.443, kg, RQ4H, PRN Respiratory Protocol, NOW, Start date: 11/14/13 20:24:00, Duration: 30 day, Stop date: 12/14/13 20:23:00(Same as: Duoneb) Dextrose 50% Syringe 25 gm, 50 mL, Route: IVP, Drug 11/14/2013 11/14/2013 Completed Form: INJ, Dosing Weight 137.443, kg, ONCE, PRN Blood Glucose Results, Start date: 11/14/13 5:39:00 Dulcolax Laxative 10 mg, 1 supp, Route: AK, Drug 11/17/2013 11/28/2013 Discontinued form: SUPP, Daily, Dosing Weight 137.443, kg, PRN Constipation, Start date: 11/17/13 11:13:00, Duration: 30 day, Stop date: 12/17/13 11:12:00(Same As: Dulcolax, Bisco-Lax) Lac-Hydrin 12% 1 appl, Route: TOP, BID, Drug form: 11/21/2013 11/28/2013 Discontinued topical cream CRM, PRN Dry Skin, Start date: 11/21/13 13:35:00, Duration: 30 day, Stop date: 12/21/13 13:34:00(Same as: Amlactin) Lasix 40 mg, 4 mL, Route: IVP, Drug form: 11/11/2013 11/11/2013 Completed INJ, ONCE, Dosing Weight 130.909, kg, Priority: STAT, Start date: 11/11/13 19:18:00, Stop date: 11/11/13 19:18:00(Same as: Lasix) Lasix 40 mg, 4 mL, Route: IVP, Drug form: 11/22/2013 11/23/2013 Discontinued INJ, Q6H, Dosing Weight 137.443, kg, Start date: 11/22/13 12:00:00, Duration: 30 day, Stop date: 12/22/13 6:00:00(Same as: Lasix) Pyridium 100 mg, 1 tab, Route: PO, Drug 11/16/2013 11/19/2013 Discontinued form: TAB, TID, Dosing Weight 137.443, kg, Start date: 11/16/13 17:00:00, Duration: 30 day, Stop date: 12/16/13 13:00:00Give with meals.(Same as: Pyridium) Lasix 40 mg, 4 mL, Route: IV, Drug form: 11/14/2013 11/14/2013 Completed INJ, ONCE, Dosing Weight 137.443, kg, Start date: 11/14/13 20:25:00, Stop date: 11/14/13 20:25:00(Same as: Lasix) Dextrose 5% in Water 1,000 mL, Rate: 75 ml/hr, Infuse 11/14/2013 11/14/2013 Discontinued IV 1,000 mL over: 13.3 hr, Route: IV, Dosing Weight 137.443 kg, Total Volume: 1,000, Start date: 11/14/13 5:39:00, Duration: 30 day, Stop date: 12/14/13 5:38:00 Ativan 0.5 mg, 1 tab, Route: PO, Drug 11/24/2013 11/28/2013 Discontinued form: TAB, BID, Dosing Weight 137.443, kg, PRN Anxiety, Start date: 11/24/13 21:02:00, Duration: 30 day, Stop date: 12/24/13 21:01:00(Same as: Ativan) furosemide 160 mg, 4 tab, Route: PO, Drug 11/26/2013 11/28/2013 Discontinued form: TAB, After Lunch, Dosing Weight 137.443, kg, Start date: 11/26/13 12:30:00, Duration: 30 day, Stop date: 12/25/13 12:30:00(Same as: Lasix) May cause GI upset. Give with food or milk. [place] 5/325 oral 1 tab, Route: PO, Drug Form: TAB, 11/18/2013 11/28/2013 Discontinued tablet Dosing Weight 137.443, kg, Q6H, PRN Pain, Start date: 11/18/13 14:46:00, Duration: 30 day, Stop date: 12/18/13 14:45:00(Same as: [place] 325/5) Do not exceed 4gm/day of acetaminophen. magnesium sulfate 2 4 gm, 100 mL, Route: IV, Drug form: 11/25/2013 11/25/2013 Completed gm in Water 50 ml INJ, ONCE, Dosing Weight 137.443, kg, Start date: 11/25/13 9:58:00, Stop date: 11/25/13 9:58:00 metFORmin 500 mg 500 mg, 1 tab, Route: PO, Drug 11/18/2013 11/28/2013 Discontinued oral tablet form: TAB, BID, Dosing Weight 137.443, kg, Start date: 11/18/13 17:00:00, Duration: 30 day, Stop date: 12/18/13 9:00:00(Same as: Glucophage) Take with meal glimepiride 4 mg, 1 tab, Route: PO, Drug form: 11/13/2013 11/14/2013 Discontinued TAB, BID, Dosing Weight 137.443, kg, Start date: 11/13/13 17:00:00, Duration: 30 day, Stop date: 12/13/13 9:00:00(Same as: Amaryl) Zaroxolyn 2.5 mg 2.5 mg=1 tab, PO, Q-M-W-F, # 90 11/27/2013 Ordered oral tablet tab, 0 Refill(s) morphine Sulfate 1 mg, 0.5 mL, Route: IV, Drug form: 11/19/2013 11/28/2013 Discontinued INJ, Q6H, Dosing Weight 137.443, kg, PRN Pain Score 1-5, Start date: 11/19/13 13:11:00, Duration: 30 day, Stop date: 12/19/13 13:10:00(Same as:MORPhine Sulfate) tolterodine 4 mg 4 mg=1 cap, PO, Q24H, # 30 cap, 0 11/27/2013 Ordered oral capsule, Refill(s) extended release Spiriva 18 mcg 18 microgram=1 ea, INHALATION, 11/27/2013 Ordered inhalation capsule Daily, # 90 ea, 0 Refill(s) potassium chloride 20 mEq=1 tab, PO, Daily, # 30 tab, 11/27/2013 Ordered 20 mEq oral tablet, 0 Refill(s) extended release pantoprazole 40 mg 40 mg=1 tab, PO, Before Dinner, # 11/27/2013 Ordered oral enteric coated 30 tab, 0 Refill(s) tablet Colace 100 mg oral 100 mg, 1 cap, Route: PO, Drug 11/17/2013 11/28/2013 Discontinued capsule form: CAP, BID, Dosing Weight 137.443, kg, Start date: 11/17/13 17:00:00, Duration: 30 day, Stop date: 12/17/13 9:00:00(Same as: Colace) (Do Not Crush) cholecalciferol 5,000 IntlUnit, 5 tab, Route: PO, 11/12/2013 11/16/2013 Discontinued Drug form: TAB, Daily, Dosing Weight 137.443, kg, Start date: 11/12/13 11:00:00, Duration: 30 day, Stop date: 12/12/13 9:00:00Same as : Vitamin D3 magnesium oxide 1,000 mg, 4 tab, Route: PO, Drug 11/23/2013 11/23/2013 Completed form: TAB, ONCE, Dosing Weight 137.443, kg, Priority: NOW, Start date: 11/23/13 18:13:00, Stop date: 11/23/13 18:13:00 Rocephin + Sodium 1 gm, Route: IVPB, [id number], Dosing 11/15/2013 11/22/2013 Discontinued Chloride 0.9% IV 100 Weight 137.443, kg, Start date: mL 11/15/13 14:00:00, Duration: 30 day, Stop date: 12/14/13 14:00:00(Same As: Rocephin). Use with 100ml NS mini-bag PLUS and infuse over 30 min Nitrostat 0.4 mg 0.4 mg, 1 tab, Route: SL, Drug 11/12/2013 11/12/2013 Deleted sublingual tablet form: TAB, Q5Min, Dosing Weight 137.443, kg, PRN Chest Pain, Start date: 11/12/13 10:39:00, Duration: 3 doses or times, Stop date: Limited # of times D10W 1,000 mL 1,000 mL, Rate: 50 ml/hr, Infuse 11/14/2013 11/14/2013 Discontinued over: 20 hr, Route: IV, Dosing Weight 137.443 kg, Total Volume: 1,000, Start date: 11/14/13 14:13:00, Duration: 30 day, Stop date: 12/14/13 14:12:00 digoxin 0.25 mg, 1 mL, Route: IVP, Drug 11/12/2013 11/13/2013 Completed form: INJ, Q8H, Dosing Weight 137.443, kg, Start date: 11/12/13 12:00:00, Duration: 4 doses or times, Stop date: 11/13/13 12:00:00(Same as: Lanoxin) lisinopril 5 mg, 1 tab, Route: PO, Drug form: 11/13/2013 11/28/2013 Discontinued TAB, Daily, Dosing Weight 137.443, kg, Start date: 11/13/13 9:00:00, Duration: 30 day, Stop date: 12/12/13 9:00:00(Same as: Prinivil, Zestril) magnesium sulfate 2 2 gm, 50 mL, Route: IV, Drug form: 11/12/2013 11/12/2013 Completed gm in Water 50 ml INJ, ONCE, Dosing Weight 137.443, kg, Start date: 11/12/13 10:38:00, Stop date: 11/12/13 10:38:00 furosemide 60 mg, 6 mL, Route: IV, Drug form: 11/15/2013 11/15/2013 Completed INJ, ONCE, Dosing Weight 137.443, kg, Start date: 11/15/13 13:48:00, Stop date: 11/15/13 13:48:00(Same as: Lasix) LORAzepam 0.5 mg, 1 tab, Route: PO, Drug 11/12/2013 11/16/2013 Discontinued form: TAB, TID, Dosing Weight 137.443, kg, PRN Anxiety, Start date: 11/12/13 10:38:00, Duration: 30 day, Stop date: 12/12/13 10:37:00(Same as: Ativan) Lasix 40 mg oral 40 mg, 1 tab, Route: PO, Drug form: 11/23/2013 11/24/2013 Discontinued tablet TAB, BID, Dosing Weight 137.443, kg, Start date: 11/23/13 21:00:00, Duration: 30 day, Stop date: 12/23/13 17:00:00(Same as: Lasix) May cause GI upset. Give with food or milk. furosemide 20 mg, 2 mL, Route: IVP, Drug form: 11/13/2013 11/19/2013 Discontinued INJ, Daily, Dosing Weight 137.443, kg, Start date: 11/13/13 9:00:00, Duration: 30 day, Stop date: 12/12/13 9:00:00(Same as: Lasix) morphine Sulfate 2 mg, 1 mL, Route: IVP, Drug form: 11/12/2013 11/19/2013 Discontinued INJ, Q2H, Dosing Weight 137.443, kg, PRN Chest Pain, Start date: 11/12/13 10:38:00, Duration: 30 day, Stop date: 12/12/13 10:37:00(Same as:MORPhine Sulfate) hydrALAZINE 10 mg, 0.5 mL, Route: IV, Drug 11/12/2013 11/28/2013 Discontinued form: INJ, Q4H, Dosing Weight 137.443, kg, PRN Hypertension, Start date: 11/12/13 10:38:00, Duration: 30 day, Stop date: 12/12/13 10:37:00(Same as: Apresoline)Push over 5 minutes alteplase 2 mg, 2 mL, Route: INJ, Drug form: 11/24/2013 11/24/2013 Completed INJ, ONCE, Dosing Weight 137.443, kg, Start date: 11/24/13 15:48:00, Stop date: 11/24/13 15:48:00"Syringe for catheter clearance or interventional radiology use.Reconstitute each vial of Cathflo Activase with 2.2ml Sterile Water resulting in a 1mg/ml solution. "Withdraw with a 5 micron filter needle.". (Same as: Activase) alteplase 2 mg, 2 mL, Route: INJ, Drug form: 11/24/2013 11/24/2013 Completed INJ, ONCE, Dosing Weight 137.443, kg, Start date: 11/24/13 15:48:00, Stop date: 11/24/13 15:48:00"Syringe for catheter clearance or interventional radiology use.Reconstitute each vial of Cathflo Activase with 2.2ml Sterile Water resulting in a 1mg/ml solution. "Withdraw with a 5 micron filter needle.". (Same as: Activase) potassium chloride 20 mEq, 1 tab, Route: PO, Drug 11/27/2013 11/28/2013 Discontinued 20 mEq oral tablet, form: ERTAB, Daily, Dosing Weight extended release 137.443, kg, Start date: 11/27/13 9:00:00, Duration: 30 day, Stop date: 12/26/13 9:00:00(Same as: K-Dur 20)"Do Not Crush" With food and full glass of water metoprolol 5 mg/5 ml 2.5 mg, 2.5 mL, Route: IV, Drug 11/12/2013 11/28/2013 Discontinued INJ form: INJ, Q2H, Dosing Weight 137.443, kg, PRN Tachycardia, Start date: 11/12/13 10:38:00, Duration: 30 day, Stop date: 12/12/13 10:37:00(Same as: Lopressor)Push over 2 minutes pneumococcal 0.5 ml, Route: IM, Drug Form: INJ, 11/12/2013 11/12/2013 Completed 23-valent vaccine Daily, Start date: 11/12/13 9:00:00, Duration: 1 doses or times, Stop date: 11/12/13 9:00:00(Same as: Pneumovax 23) Refrigerate Zaroxolyn 2.5 mg, 1 tab, Route: PO, Drug 11/27/2013 11/28/2013 Discontinued form: TAB, Daily, Dosing Weight 137.443, kg, Start date: 11/27/13 9:00:00, Duration: 30 day, Stop date: 12/26/13 9:00:00(Same as: Zaroxolyn) hydrochlorothiazide- 1 cap, PO, Daily, # 30 cap, 0 11/11/2013 11/27/2013 Discontinued triamterene 25 Refill(s) mg-37.5 mg oral capsule Haldol 2 mg, 0.4 mL, Route: IV, Drug form: 11/16/2013 11/18/2013 Discontinued INJ, Q6H, Dosing Weight 137.443, kg, PRN as needed for anxiety, Start date: 11/16/13 21:44:00, Duration: 30 day, Stop date: 12/16/13 21:43:00(Same as: Haldol) nitroglycerin 0.4 mg 0.4 mg, 1 tab, Route: SL, Drug 11/11/2013 11/28/2013 Discontinued sublingual tablet form: TAB, Q5Min, PRN Chest Pain, Start date: 11/11/13 23:30:00, Duration: 30 day, Stop date: 12/11/13 23:29:00(Same as:Nitroquick, Nitrostat)"Do Not Crush" Sublingual tablet atropine 0.5 mg, 5 mL, Route: IVP, Drug 11/11/2013 11/28/2013 Discontinued form: INJ, PRN, PRN Bradycardia, Start date: 11/11/13 23:30:00, Duration: 30 day, Stop date: 12/11/13 23:29:00 glucagon 1 mg, Route: IM, Drug form: 11/17/2013 11/28/2013 Discontinued PDR/INJ, PRN, PRN Blood Glucose Results, Start date: 11/17/13 20:32:00, Duration: 30 day, Stop date: 12/17/13 20:31:00 Dextrose 50% in 50 mL, Route: IVP, Start date: 11/17/2013 11/28/2013 Discontinued Water IV 11/17/13 20:32:00, Duration: 30 day, Stop date: 12/17/13 20:31:00, PRN Blood Glucose Results NovoLog FlexPen 12 unit, 0.12 mL, Route: SUB-Q, 11/17/2013 11/28/2013 Discontinued Drug form: SOLN, Q6H, PRN Blood Glucose Results, Start date: 11/17/13 20:32:00, Duration: 30 day, Stop date: 12/17/13 20:31:00Roll in palms of hands gently; Do not shake vigorously. (Same as: NovoLog)"single patient use only" Stable for 28 days at room temperature.Expires in days from Date NovoLog FlexPen 10 unit, 0.1 mL, Route: SUB-Q, Drug 11/17/2013 11/28/2013 Discontinued form: SOLN, Q6H, PRN Blood Glucose Results, Start date: 11/17/13 20:32:00, Duration: 30 day, Stop date: 12/17/13 20:31:00Roll in palms of hands gently; Do not shake vigorously. (Same as: NovoLog)"single patient use only" Stable for 28 days at room temperature.Expires in days from Date NovoLog FlexPen 8 unit, 0.08 mL, Route: SUB-Q, Drug 11/17/2013 11/28/2013 Discontinued form: SOLN, Q6H, PRN Blood Glucose Results, Start date: 11/17/13 20:32:00, Duration: 30 day, Stop date: 12/17/13 20:31:00Roll in palms of hands gently; Do not shake vigorously. (Same as: NovoLog)"single patient use only" Stable for 28 days at room temperature.Expires in days from Date d50 syringe 25 gm, 50 mL, Route: IVP, Drug 11/14/2013 11/28/2013 Discontinued Form: INJ, Dosing Weight 137.443, kg, PRN, PRN Other -See Comment, Start date: 11/14/13 16:13:00, Duration: 30 day, Stop date: 12/14/13 16:12:00, for blood glucose <60 Lidoderm 5% topical 1 patch, Route: TOP, Daily, Drug 11/27/2013 11/28/2013 Discontinued film (patch) form: FILM, Start date: 11/27/13 9:00:00, Duration: 30 day, Stop date: 12/26/13 9:00:00, Remove after 12 hours Remove after 12 hoursApply only once for up to 12 hours in [id number] period (12 hours on and 12 hours off).(Same as: Lidoderm)"Remove old patch before application of new patch" furosemide 80 mg, 8 mL, Route: IV, Drug form: 11/15/2013 11/15/2013 Completed INJ, ONCE, Dosing Weight 137.443, kg, Start date: 11/15/13 20:00:00, Stop date: 11/15/13 20:00:00(Same as: Lasix) D10W 1,000 mL 1,000 mL, Rate: 50 ml/hr, Infuse 11/17/2013 11/18/2013 Discontinued over: 20 hr, Route: IV, Dosing Weight 137.443 kg, Total Volume: 1,000, Start date: 11/17/13 17:47:00, Duration: 30 day, Stop date: 12/17/13 17:46:00 Haldol 2 mg, 0.4 mL, Route: IV, Drug form: 11/16/2013 11/16/2013 Completed INJ, ONCE, Start date: 11/16/13 10:11:00, Stop date: 11/16/13 10:11:00(Same as: Haldol) Lasix 40 mg, 4 mL, Route: IVP, Drug form: 11/11/2013 11/12/2013 Discontinued INJ, Q12H, Dosing Weight 130.909, kg, Priority: STAT, Start date: 11/11/13 23:50:00, Duration: 30 day, Stop date: 12/11/13 21:00:00(Same as: Lasix) NovoLog FlexPen 6 unit, 0.06 mL, Route: SUB-Q, Drug 11/17/2013 11/28/2013 Discontinued form: SOLN, Q6H, PRN Blood Glucose Results, Start date: 11/17/13 20:32:00, Duration: 30 day, Stop date: 12/17/13 20:31:00Roll in palms of hands gently; Do not shake vigorously. (Same as: NovoLog)"single patient use only" Stable for 28 days at room temperature.Expires in days from Date D50W 1000 mL 1,000 mL, Rate: 100 ml/hr, Infuse 11/14/2013 11/14/2013 Discontinued over: 10 hr, Route: IV, Dosing Weight 137.443 kg, Total Volume: 1,000, Start date: 11/14/13 16:11:00, Duration: 30 day, Stop date: 12/14/13 16:10:00 NovoLog FlexPen 4 unit, 0.04 mL, Route: SUB-Q, Drug 11/17/2013 11/28/2013 Discontinued form: SOLN, Q6H, PRN Blood Glucose Results, Start date: 11/17/13 20:32:00, Duration: 30 day, Stop date: 12/17/13 20:31:00Roll in palms of hands gently; Do not shake vigorously. (Same as: NovoLog)"single patient use only" Stable for 28 days at room temperature.Expires in days from Date NovoLog FlexPen 2 unit, 0.02 mL, Route: SUB-Q, Drug 11/17/2013 11/28/2013 Discontinued form: SOLN, Q6H, PRN Blood Glucose Results, Start date: 11/17/13 20:31:00, Duration: 30 day, Stop date: 12/17/13 20:30:00Roll in palms of hands gently; Do not shake vigorously. (Same as: NovoLog)"single patient use only" Stable for 28 days at room temperature.Expires in days from Date nitroglycerin 0.4 mg 0.4 mg=1 tab, SL, Q5Min, Chest 11/27/2013 Ordered sublingual tablet Pain, # 100 tab, 0 Refill(s) lisinopril 5 mg oral 5 mg=1 tab, PO, Daily, # 30 tab, 0 11/27/2013 Ordered tablet Refill(s) normal saline 0.9% 1,000 mL, Rate: 50 ml/hr, Infuse 11/17/2013 11/17/2013 Discontinued IV 1,000 mL over: 20 hr, Route: IV, Dosing Weight 137.443 kg, Total Volume: 1,000, Start date: 11/17/13 19:17:00, Duration: 30 day, Stop date: 12/17/13 19:16:00 Immunizations Vaccine Date Status influenza virus vaccine, inactivated1 11/27/2013 Auth (Verified) pneumococcal 23-valent vaccine 11/12/2013 Auth (Verified) 1Admin Note: recvd 10/30/13 at 's office Vital Signs Most recent to oldest [Reference Range]: 1 2 3 Height 165.1 cm (11/11/2013 15:39:00) Current Weight 110.955 kg (11/27/2013 05:04:00) 109.773 kg (11/26/2013 04:38:00) 144.045 kg (11/24/2013 09:01:00) Temperature Oral [96.4-99.1 DegF] 97.9 DegF (11/27/2013 20:00:00) 98.2 DegF (11/27/2013 15:57:00) 98.5 DegF (11/27/2013 12:00:00) Systolic Blood Pressure [90-140 mmHg] 126 mmHg (11/28/2013 00:00:00) 126 mmHg (11/27/2013 20:00:00) 104 mmHg (11/27/2013 15:57:00) Diastolic Blood Pressure [60-90 mmHg] 70 mmHg (11/28/2013 00:00:00) 75 mmHg (11/27/2013 20:00:00) 66 mmHg (11/27/2013 15:57:00) Respiratory Rate [14-20 BRMIN] 16 BRMIN (11/28/2013 00:00:00) 16 BRMIN (11/27/2013 20:00:00) 16 BRMIN (11/27/2013 15:57:00) Peripheral Pulse Rate [60-100 bpm] 89 bpm (11/28/2013 00:00:00) 85 bpm (11/27/2013 20:00:00) 82 bpm (11/27/2013 15:57:00) Weight 137.443 kg (11/12/2013 00:14:00) 130.909 kg (11/11/2013 15:39:00) Results BEDSIDE GLUCOSE TESTING Most recent to oldest [Reference Range]: 1 2 3 Glucose POC [70-99 mg/dL] 119 mg/dL 1 *HI* (11/27/2013 21:08:00) 126 mg/dL 2 *HI* (11/27/2013 15:25:00) 131 mg/dL 3 *HI* (11/27/2013 11:51:00) Gluc POC Comment 1 Notified RN/MD *NA* (11/27/2013 15:25:00) Notified RN/MD *NA* (11/27/2013 11:51:00) Notified RN/MD *NA* (11/26/2013 16:01:00) Gluc POC Comment 2 Confirmed with *NA* (11/24/2013 15:46:00) Confirmed with *NA* (11/24/2013 11:08:00) Notified RN/MD *NA* (11/23/2013 15:06:00) 1Interpretive Data: Upper Reportable Limit: 200 mg/dL. 2Interpretive Data: Upper Reportable Limit: 200 mg/dL. 3Interpretive Data: Upper Reportable Limit: 200 mg/dL. URINALYSIS Most recent to oldest [Reference Range]: 1 2 3 UA Turbidity [Clear] Marked *ABN* (11/11/2013 17:18:00) UA Color [place] *NA* (11/11/2013 17:18:00) UA pH [5.0-8.0] 5.0 (11/11/2013 17:18:00) UA Spec Grav [<=1.030] 1.020 (11/11/2013 17:18:00) UA Glucose [Negative mg/dL] Negative mg/dL *NA* (11/11/2013 17:18:00) UA Blood [Negative] Large *ABN* (11/11/2013 17:18:00) UA Ketones [Negative mg/dL] Negative mg/dL *NA* (11/11/2013 17:18:00) UA Protein [Negative mg/dL] 100 mg/dL *ABN* (11/11/2013 17:18:00) UA Urobilinogen [0.1-1.0 mg/dL] 4.0 mg/dL *HI* (11/11/2013 17:18:00) UA Bili [Negative] Negative *NA* (11/11/2013 17:18:00) UA Leuk Est [Negative] Trace *ABN* (11/11/2013 17:18:00) UA Nitrite [Negative] Negative (11/11/2013 17:18:00) UA WBC [0-5 /HPF] 5 /HPF (11/11/2013 17:18:00) UA RBC [0-2 /HPF] 106 /HPF *HI* (11/11/2013 17:18:00) UA Bacteria [None Seen /HPF] Many /HPF *ABN* (11/11/2013 17:18:00) UA Sq Epi None Seen *NA* (11/11/2013 17:18:00) UA Hyal Cast [0-2 /LPF] 10 /LPF *HI* (11/11/2013 17:18:00) UA Mucus [None Seen /LPF] Few /LPF *NA* (11/11/2013 17:18:00) CHEMISTRY Most recent to oldest [Reference Range]: 1 2 3 Sodium Lvl [135-145 mEq/L] 138 mEq/L (11/26/2013 06:14:00) 139 mEq/L (11/25/2013 05:43:00) 135 mEq/L (11/24/2013 10:56:00) Potassium Lvl [3.5-5.1 mEq/L] 4.2 mEq/L (11/26/2013 06:14:00) 4.5 mEq/L (11/25/2013 05:43:00) 4.3 mEq/L (11/24/2013 10:56:00) Chloride Lvl [95-109 mEq/L] 95 mEq/L (11/26/2013 06:14:00) 95 mEq/L (11/25/2013 05:43:00) 94 mEq/L *LOW* (11/24/2013 10:56:00) CO2 [24-32 mEq/L] 34 mEq/L *HI* (11/26/2013 06:14:00) 37 mEq/L *HI* (11/25/2013 05:43:00) 38 mEq/L *HI* (11/24/2013:56:00) AGAP [10.0-20.0 mEq/L] 13.2 mEq/L (11/26/2013 06:14:00) 11.5 mEq/L (11/25/2013 05:43:00) 7.3 mEq/L *LOW* (11/24/2013 10:56:00) Creatinine Lvl [0.5-1.4 mg/dL] 0.7 mg/dL (11/26/2013 06:14:00) 0.8 mg/dL (11/25/2013 05:43:00) 0.8 mg/dL (11/24/2013 10:56:00) eGFR 91 mL/min/1.73m2 4 *NA* (11/26/2013 06:14:00) 77 mL/min/1.73m2 5 *NA* (11/25/2013 05:43:00) 77 mL/min/1.73m2 6 *NA* (11/24/2013 10:56:00) BUN [7-22 mg/dL] 22 mg/dL (11/26/2013 06:14:00) 22 mg/dL (11/25/2013 05:43:00) 19 mg/dL (11/24/2013 10:56:00) B/C Ratio [6-25] 40 *HI* (11/22/2013 04:55:00) 33 *HI* (11/15/2013 00:48:00) 32 *HI* (11/14/2013 19:11:00) Glucose Lvl [70-99 mg/dL] 120 mg/dL 7 *HI* (11/26/2013 06:14:00) 132 mg/dL 8 *HI* (11/25/2013 05:43:00) 139 mg/dL 9 *HI* (11/24/2013 10:56:00) Uric Acid [2.5-7.0 mg/dL] 3.7 mg/dL (11/27/2013 06:30:00) 4.4 mg/dL (11/17/2013 05:35:00) Total Protein [6.4-8.4 g/dL] 6.4 g/dL (11/22/2013 04:55:00) 6.1 g/dL *LOW* (11/17/2013 05:35:00) 6.5 g/dL (11/15/2013 00:48:00) Albumin Lvl [3.5-5.0 g/dL] 2.4 g/dL *LOW* (11/22/2013 04:55:00) 2.4 g/dL *LOW* (11/17/2013 05:35:00) 2.3 g/dL *LOW* (11/15/2013 00:48:00) Globulin [2.0-4.0 g/dL] 4.0 g/dL (11/22/2013 04:55:00) 3.7 g/dL (11/17/2013 05:35:00) 4.2 g/dL *HI* (11/15/2013 00:48:00) A/G Ratio [0.7-1.6] 0.6 *LOW* (11/22/2013 04:55:00) 0.6 *LOW* (11/17/2013 05:35:00) 0.5 *LOW* (11/15/2013 00:48:00) Calcium Lvl [8.5-10.5 mg/dL] 8.1 mg/dL *LOW* (11/26/2013 06:14:00) 8.3 mg/dL *LOW* (11/25/2013 05:43:00) 8.5 mg/dL (11/24/2013 10:56:00) Phosphorus [2.5-4.5 mg/dL] 2.8 mg/dL (11/26/2013 06:14:00) 2.7 mg/dL (11/25/2013 05:43:00) 2.4 mg/dL *LOW* (11/24/2013 10:56:00) Magnesium Lvl [1.8-2.4 mg/dL] 2.0 mg/dL (11/26/2013 06:14:00) 1.2 mg/dL *LOW* (11/25/2013 05:43:00) 1.4 mg/dL *LOW* (11/24/2013 10:56:00) ALT [0-65 unit/L] 16 unit/L (11/22/2013 04:55:00) 15 unit/L (11/17/2013 05:35:00) 14 unit/L (11/15/2013 00:48:00) AST [0-37 unit/L] 26 unit/L (11/22/2013 04:55:00) 26 unit/L (11/17/2013 05:35:00) 24 unit/L (11/15/2013 00:48:00) Alk Phos [39-136 unit/L] 118 unit/L (11/22/2013 04:55:00) 128 unit/L (11/17/2013 05:35:00) 138 unit/L *HI* (11/15/2013 00:48:00) Bili Total [0.2-1.3 mg/dL] 0.6 mg/dL (11/22/2013 04:55:00) 0.8 mg/dL (11/17/2013 05:35:00) 0.9 mg/dL (11/15/2013 00:48:00) Bili Direct [0.0-0.3 mg/dL] 0.5 mg/dL *HI* (11/17/2013 05:35:00) Bili Indirect [0.0-1.0 mg/dL] 0.3 mg/dL (11/17/2013 05:35:00) Osmolality [280-300 mOsm/kg] 298 mOsm/kg (11/17/2013 05:35:00) Aldosterone 5 ng/dL 10 *NA* (11/17/2013 05:35:00) Vitamin D 1,25 (OH)2 Total [18-72 pg/mL] 19 pg/mL *NA* (11/12/2013 15:56:00) Vitamin D2 1,25 (OH)2 < 8 pg/mL 11 *NA* (11/12/2013 15:56:00) Vitamin D3 1,25 (OH)2 19 pg/mL *NA* (11/12/2013 15:56:00) Total CK [12-191 unit/L] 116 unit/L (11/15/2013 00:48:00) 43 unit/L (11/12/2013 15:56:00) 57 unit/L (11/12/2013 08:09:00) CK MB [0.5-3.6 ng/mL] 2.8 ng/mL (11/15/2013 00:48:00) 1.5 ng/mL (11/12/2013 15:56:00) 1.5 ng/mL (11/12/2013 08:09:00) CK MB Index [0.0-2.5] 2.4 (11/15/2013 00:48:00) 3.5 *HI* (11/12/2013 15:56:00) 2.6 *HI* (11/12/2013 08:09:00) Troponin-I [0.00-0.40 ng/mL] 0.13 ng/mL (11/15/2013 00:48:00) 0.03 ng/mL (11/12/2013 15:56:00) 0.02 ng/mL (11/12/2013 08:09:00) BNP [<=100 pg/mL] 605 pg/mL 12 *HI* (11/15/2013 00:48:00) 1574 pg/mL 13 *HI* (11/13/2013 23:25:00) 1325 pg/mL 14 *HI* (11/11/2013 17:18:00) CHD Risk [3.90-5.80] 5.81 *HI* (11/12/2013 02:27:00) Chol [<=199 mg/dL] 157 mg/dL (11/12/2013 02:27:00) Trig [<=149 mg/dL] 153 mg/dL *HI* (11/12/2013 02:27:00) HDL [>=61 mg/dL] 27 mg/dL *LOW* (11/12/2013 02:27:00) LDL (Calculated) [<=99 mg/dL] 99 mg/dL (11/12/2013 02:27:00) Hgb A1C [<=5.6 %] 6.0 % *HI* (11/12/2013 15:56:00) T3 Uptake [31-39 %] 32 % (11/12/2013 15:56:00) T4 [4.7-13.3 ug/dl] 10.1 ug/dl (11/12/2013 15:56:00) FTI 3.2 *NA* (11/12/2013 15:56:00) TSH [0.360-3.740 uIU/mL] 1.570 uIU/mL (11/12/2013 15:56:00) 1.820 uIU/mL (11/12/2013 02:27:00) Digoxin Lvl [0.8-2.0 ng/mL] 1.7 ng/mL (11/15/2013 00:48:00) Cortisol [3.0-23.0 ug/dl] 23.4 ug/dl 15 *HI* (11/17/2013 05:35:00) U Creatinine 86.1 mg/dL 16 *NA* (11/16/2013 12:30:00) U Protein 107.4 mg/dL 17 *NA* (11/16/2013 12:30:00) U Prot/Creat 1.2 *NA* (11/16/2013 12:30:00) U Sodium 11 mEq/L 18 *NA* (11/16/2013 12:30:00) U Osmolality [300-800 mOsm/kg] 314 mOsm/kg (11/16/2013 12:30:00) U Eos [None Seen] None Seen (11/16/2013 12:30:00) pH Art [7.35-7.45] 7.35 (11/18/2013 16:53:00) pCO2 Art [35-45 mmHg] 53 mmHg *HI* (11/18/2013 16:53:00) pO2 Art [80-100 mmHg] 116 mmHg *HI* (11/18/2013 16:53:00) HCO3 Art [22-26 mMol/L] 29 mMol/L *HI* (11/18/2013 16:53:00) Site Art Right Ra (11/18/2013 16:53:00) Temp Art 37.0 DegC *NA* (11/18/2013 16:53:00) Allens Art Positive (11/18/2013 16:53:00) Flow Art 4.0 *NA* (11/18/2013 16:53:00) Mode Art NC (11/18/2013 16:53:00) FiO2 Art 36.0 *NA* (11/18/2013 16:53:00) O2Hb Art [95.0-100.0 %] 95.5 % (11/18/2013 16:53:00) 4Result Comment: The eGFR is calculated using [...] from the National Kidney Disease Education Program ( NKDEP) which additionally recommends that when the eGFR is used in patients with extremes of body mass index for purposes of drug dosing, the eGFR should be mul tiplied by the estimated BMI. 5Result Comment: The eGFR is calculated using [...] from the National Kidney Disease Education Program ( NKDEP) which additionally recommends that when the eGFR is used in patients with extremes of body mass index for purposes of drug dosing, the eGFR should be mul tiplied by the estimated BMI. 6Result Comment: The eGFR is calculated using [...] from the National Kidney Disease Education Program ( NKDEP) which additionally recommends that when the eGFR is used in patients with extremes of body mass index for purposes of drug dosing, the eGFR should be mul tiplied by the estimated BMI. 7Interpretive Data: Adult reference range values reflect the clinical guidelines of the [place] [employer]. 8Interpretive Data: Adult reference range values reflect the clinical guidelines of the [place] [employer]. 9Interpretive Data: Adult reference range values reflect the clinical guidelines of the [place] [employer]. 10Result Comment: Adult Reference Ranges for Aldosterone, LC/MS/MS: Upright 8:00-10:00 am < or=28 ng/dL Upright 4:00-6:00 pm < or=21 ng/dL Supine 8:00-10:00 am 3-16 ng/dL Test Performed at: [facility] [address] [id number] Roula Rendon MD, PhD 11Result Comment: Vitamin D2, 1,25 (OH)2: Reference ranges are established for total 1,25-dihydroxy vitamin D. Values for subcomponents D2 (derived from plant or fungal sources) and D3 (derived from human or animal sources) are provided for informational purposes only. This test(s) was developed and its performance characteristics have been determined by [facility], [place], [place]. Performance characteristics refer to the analytical performance of the test. Test Performed at: [facility], [address] [place] [phone] Rony Patel MD, [facility] 12Interpretive Data: Elevated results are in line with increasing severity of congestive heart failure. Minor elevations between 100 and 300 may be seen with Myocardial Ischemia, Sodium retaining drugs, and compensated/treated heart failure. 13Interpretive Data: Elevated results are in line with increasing severity of congestive heart failure. Minor elevations between 100 and 300 may be seen with Myocardial Ischemia, Sodium retaining drugs, and compensated/treated heart failure. 14Interpretive Data: Elevated results are in line with increasing severity of congestive heart failure. Minor elevations between 100 and 300 may be seen with Myocardial Ischemia, Sodium retaining drugs, and compensated/treated heart failure. 15Interpretive Data: CORD BLOOD: 5 - 17 [...] 23.0 ug/dL 4PM 3.0 - 16.0 ug/dL 16Interpretive Data: No established reference ranges. 17Interpretive Data: No established reference ranges. 18Interpretive Data: No established reference ranges. HEMATOLOGY Most recent to oldest [Reference Range]: 1 2 3 WBC [3.7-10.4 K/CMM] 10.0 K/CMM (11/25/2013 05:43:00) 7.5 K/CMM (11/22/2013 04:55:00) 6.8 K/CMM (11/18/2013 05:50:00) RBC [4.20-5.40 M/CMM] 3.80 M/CMM *LOW* (11/25/2013 05:43:00) 3.81 M/CMM *LOW* (11/22/2013 04:55:00) 3.97 M/CMM *LOW* (11/18/2013 05:50:00) Hgb [12.0-16.0 g/dL] 10.0 g/dL *LOW* (11/25/2013 05:43:00) 10.4 g/dL *LOW* (11/22/2013 04:55:00) 10.6 g/dL *LOW* (11/18/2013 05:50:00) Hct [36.0-48.0 %] 33.4 % *LOW* (11/25/2013 05:43:00) 32.8 % *LOW* (11/22/2013 04:55:00) 34.4 % *LOW* (11/18/2013 05:50:00) MCV [81.0-99.0 fL] 88.0 fL (11/25/2013 05:43:00) 86.2 fL (11/22/2013 04:55:00) 86.6 fL (11/18/2013 05:50:00) MCH [27.0-31.0 pg] 26.3 pg *LOW* (11/25/2013 05:43:00) 27.2 pg (11/22/2013 04:55:00) 26.8 pg *LOW* (11/18/2013 05:50:00) MCHC [32.0-36.0 g/dL] 29.8 g/dL *LOW* (11/25/2013 05:43:00) 31.6 g/dL *LOW* (11/22/2013 04:55:00) 31.0 g/dL *LOW* (11/18/2013 05:50:00) RDW [11.5-14.5 %] 20.0 % *HI* (11/25/2013 05:43:00) 20.1 % *HI* (11/22/2013 04:55:00) 19.5 % *HI* (11/18/2013 05:50:00) Platelet [133-450 K/CMM] 170 K/CMM (11/25/2013 05:43:00) 156 K/CMM (11/22/2013 04:55:00) 187 K/CMM (11/18/2013 05:50:00) MPV [7.4-10.4 fL] 7.2 fL *LOW* (11/25/2013 05:43:00) 7.8 fL (11/22/2013 04:55:00) 7.2 fL *LOW* (11/18/2013 05:50:00) Segs [45.0-75.0 %] 70.3 % (11/25/2013 05:43:00) 73.2 % (11/22/2013 04:55:00) 94.3 % *HI* (11/18/2013 05:50:00) Lymphocytes [20.0-40.0 %] 17.2 % *LOW* (11/25/2013 05:43:00) 13.9 % *LOW* (11/22/2013 04:55:00) 5.0 % *LOW* (11/18/2013 05:50:00) Monocytes [2.0-12.0 %] 8.9 % (11/25/2013 05:43:00) 10.9 % (11/22/2013 04:55:00) 0.4 % *LOW* (11/18/2013 05:50:00) Eosinophils [0.0-4.0 %] 2.8 % (11/25/2013 05:43:00) 1.6 % (11/22/2013 04:55:00) 0.0 % (11/18/2013 05:50:00) Basophils [0.0-1.0 %] 0.8 % (11/25/2013 05:43:00) 0.4 % (11/22/2013 04:55:00) 0.3 % (11/18/2013 05:50:00) Segs-Bands # [1.5-8.1 K/CMM] 7.0 K/CMM (11/25/2013 05:43:00) 5.5 K/CMM (11/22/2013 04:55:00) 6.4 K/CMM (11/18/2013 05:50:00) Lymphocytes # [1.0-5.5 K/CMM] 1.7 K/CMM (11/25/2013 05:43:00) 1.0 K/CMM (11/22/2013 04:55:00) 0.3 K/CMM *LOW* (11/18/2013 05:50:00) Monocytes # [0.0-0.8 K/CMM] 0.9 K/CMM *HI* (11/25/2013 05:43:00) 0.8 K/CMM (11/22/2013 04:55:00) 0.0 K/CMM (11/18/2013 05:50:00) Eosinophils # [0.0-0.5 K/CMM] 0.3 K/CMM (11/25/2013 05:43:00) 0.1 K/CMM (11/22/2013 04:55:00) 0.0 K/CMM (11/18/2013 05:50:00) Basophils # [0.0-0.2 K/CMM] 0.1 K/CMM (11/25/2013 05:43:00) 0.0 K/CMM (11/22/2013 04:55:00) 0.0 K/CMM (11/18/2013 05:50:00) RBC Morph Normal (11/14/2013 19:11:00) Plt Morph Normal (11/14/2013 19:11:00) PT [12.0-14.7 seconds] 13.2 seconds (11/24/2013 16:47:00) 14.2 seconds (11/15/2013 00:48:00) 14.1 seconds (11/12/2013 15:56:00) INR [0.85-1.17] 1.01 19 (11/24/2013 16:47:00) 1.11 20 (11/15/2013 00:48:00) 1.10 21 (11/12/2013 15:56:00) PTT [22.9-35.8 seconds] 31.1 seconds 22 (11/24/2013 16:47:00) 31.3 seconds 23 (11/12/2013 15:56:00) 19Interpretive Data: RECOMMENDED RANGES FOR PROTIME INR: 2.0-3.0 for most medical and surgical thromboembolic states. 2.5-3.5 for artificial heart valves and recurrent embolism. INR SHOULD BE USED ONLY FOR PATIENTS ON STABLE ANTICOAGULANT THERAPY. 20Interpretive Data: RECOMMENDED RANGES FOR PROTIME INR: 2.0-3.0 for most medical and surgical thromboembolic states. 2.5-3.5 for artificial heart valves and recurrent embolism. INR SHOULD BE USED ONLY FOR PATIENTS ON STABLE ANTICOAGULANT THERAPY. 21Interpretive Data: RECOMMENDED RANGES FOR PROTIME INR: 2.0-3.0 for most medical and surgical thromboembolic states. 2.5-3.5 for artificial heart valves and recurrent embolism. INR SHOULD BE USED ONLY FOR PATIENTS ON STABLE ANTICOAGULANT THERAPY. 22Interpretive Data: Heparin Therapeutic Range: 57 - 92 Seconds 23Interpretive Data: Heparin Therapeutic Range: 57 - 92 Seconds IMMUNOLOGY Most recent to oldest [Reference Range]: 1 2 3 Prealbumin [18.0-45.0 mg/dL] 8.7 mg/dL *LOW* (11/14/2013 04:47:52) Microbiology Reports PROCEDURE:Culture: Urine STATUS: Auth (Verified) BODY SITE: COLLECTED DATE/TIME: 11/11/2013 17:18:00 SOURCE: Urine, Clean Catch FREE TEXT SOURCE: FINAL REPORTS Final Report 50,000 - 100,000 CFU/mL Klebsiella pneumoniae ssp pneumoniae PRELIMINARY REPORTS Preliminary Report 50,000 - 100,000 CFU/mL Gram Negative Rods, Lactose Fermenters Identification And Sensitivity Pending Preliminary Report 50,000 - 100,000 CFU/mL Gram Negative Rods, Lactose Fermenters Subculture In Progress SUSCEPTIBILITY REPORT Klebsiella pneumoniae ssp pneumoniae Antibiotic Vitek Dilution Vitek Interpretation Amikacin Susceptible Ampicillin Resistant Ampicillin/Sulbactam Susceptible Cefazolin Susceptible Cefepime Susceptible Ceftriaxone Susceptible ESBL Confirmation Negative Gentamicin Susceptible Levofloxacin Susceptible Meropenem Susceptible Nitrofurantoin Resistant Piperacillin/Tazobactam Susceptible Tetracycline Susceptible Tobramycin Susceptible Trimethoprim/Sulfamethoxazole Susceptible Procedures Procedures Date Related Diagnosis Oophorectomy Tonsillectomy
--- OUTSIDE RECORDS SUMMARY | 2019-04-01 15:01 | XMS REPORT | Summary of Care ---
Author Author [facility] Organization [facility] [place] Address Unknown Phone Unavailable Encounter [facility] Cortes_claudia(FIN) [id number] Date(s): 02/19/17 - 02/19/17 [facility] [address] [place] [phone] Discharge Disposition: Home or Self Care Attending Physician: Danny Palacios MD Vital Signs No data available for this section Problem List Condition Effective Dates Status Health Status Informant CHF (congestive 11/11/13 Active heart failure)(Confirmed) DM - Diabetes Active mellitus(Confirmed) Gout, Active arthritis(Confirmed) HTN Active (hypertension)(Confi rmed) Allergies, Adverse Reactions, Alerts Substance Reaction Severity Status NKDA Active Medications No data available for this section Results No data available for this section Immunizations Given and Recorded Vaccine Date Status Refusal Reason influenza virus vaccine, inactivated1 11/27/13 Given pneumococcal 23-valent vaccine 11/12/13 Given 1Admin Note: recvd 10/30/13 at 's office Procedures Procedure Date Related Diagnosis Body Site Oophorectomy Tonsillectomy Social History Social History Type Response Smoking Status Former smoker; Type: Cigarettes; Tobacco use per day: 0; Number of years: 0; Total pack years: 00; Previous treatment: Counseling; Ready to change: No; Concerns about tobacco use in household: No; Exposure to Tobacco Smoke None; Cigarette Smoking Last 365 Days No; Reg Smoking Cessation Counseling Yes Assessment and Plan No data available for this section
[2019-04-01] MEDS ORDERED: SODIUM CHLORIDE 0.9% 1000ML 1,000 ML IV STA (15:20)
[2019-04-01 15:53] LABS: BASOPHILS # (AUTO) 0.1 (0.0-0.1); BASOPHILS % 0.3 % (0.0-1.0); EOSINOPHILS % 0.2 % (0.0-6.0); HEMATOCRIT 35.8 % (34.2-44.1); HEMOGLOBIN 11.5 g/dL (12.0-16.0); LYMPHOCYTES # (AUTO) 1.7 (1.0-3.2); LYMPHOCYTES % 8.9 % (18.0-39.1); MEAN CORPUSCULAR HEMOGLOBIN 26.9 pg (28-32); MEAN CORPUSCULAR HGB CONC 32.1 g/dL (31-35); MEAN CORPUSCULAR VOLUME 83.6 fL (81-99); MONOCYTES # (AUTO) 1.1 (0.2-0.8); NEUTROPHILS # (AUTO) 15.9 (2.1-6.9); NEUTROPHILS % 83.9 % (38.7-80.0); PLATELET COUNT 269 x10e3/uL (140-360); RED BLOOD COUNT 4.28 x10e6/uL (3.6-5.1); RED CELL DISTRIBUTION WIDTH 15.3 % (11.7-14.4)
--- NOTE | 2019-04-01 16:04 | Diagnostic Imaging Report ---
Examination: CT head without contrast Clinical Indication: Altered mental status. Technique: Transaxial noncontrast images from the skull base through the vertex were obtained. Sagittal and coronal reformatted images were done. Dose modulation, iterative reconstruction, and/or weight based adjustment of the mA/kV was utilized to reduce the radiation dose to as low as reasonably achievable. Comparison: None. Findings: Scalp: No abnormalities. Bones: Intact. No fractures. No blastic or lytic lesions. Brain sulci: Appropriate for patient's age. Ventricles: Normal in size and configuration. No hydrocephalus. . Extra-axial space: No abnormalities. Parenchyma: There are mild confluent areas of low-attenuation within subcortical and periventricular white matter, nonspecific, but could represent microvascular ischemic disease. No masses, hemorrhage, or acute or chronic cortical based vascular insults. Suprasellar region: No abnormalities. Craniocervical junction: The foramen magnum is patent. No Chiari one malformation. Incidental findings: Atherosclerotic calcification of the cavernous and supraclinoid internal carotid and V4 segments of the bilateral vertebral arteries. Impression: 1. No acute intracranial finding. 2. Mild chronic microvascular ischemic change. Signed by: Dr. Regina Fam M.D. on 04/01/2019 4:01 PM
[2019-04-01 16:08] LABS: INR 0.93
[2019-04-01 16:09] LABS: PARTIAL THROMBOPLASTIN TIME 35.3 seconds (23.8-35.5)
[2019-04-01 16:16] LABS: ALBUMIN 2.9 g/dL (3.5-5.0); ALBUMIN/GLOBULIN RATIO 0.6 (0.8-2.0); ANION GAP 15.5 mmol/L (8-16); CALCIUM 10.2 mg/dL (8.4-10.2); CREATININE, SERUM 1.08 mg/dL (0.57-1.11); MAGNESIUM 1.3 MG/DL (1.3-2.1); POTASSIUM 4.5 mmol/L (3.5-5.1)
[2019-04-01 16:22] LABS: CREATINE KINASE MB 0.9 ng/mL (0-5.0)
[2019-04-01 16:28] LABS: B-TYPE NATRIURETIC PEPTIDE2 450.1 pg/mL (0-100)
[2019-04-01 17:02] LABS: CLARITY,URINE SL CLOUDY (CLEAR); COLOR,URINE YELLOW (YELLOW); LEUKOCYTE ESTERASE ,URINE TRACE (NEGATIVE); NITRITE,URINE NEGATIVE (NEGATIVE)
[2019-04-01 17:03] LABS: BILIRUBIN,URINE NEGATIVE (NEGATIVE); KETONES,URINE NEGATIVE (NEGATIVE); PROTEIN,URINE DIPSTICK 2+ (NEGATIVE); URINE UROBILINOGEN 1 mg/dL (0.2 - 1)
[2019-04-01 17:11] LABS: BACTERIA,URINE MODERATE /HPF; EPITHELIAL CELLS,URINE FEW /LPF; RBC,URINE 0-5 /HPF (0-5)
--- NOTE | 2019-04-01 18:27 | Diagnostic Imaging Report ---
EXAM: CHEST SINGLE (PORTABLE), AP Portable DATE: 04/01/2019 Time stamp on exam: 3:49 PM INDICATION: Altered mental status COMPARISON: None FINDINGS: LINES/TUBES: None LUNGS: No edema. Right lower lobe calcified granuloma. Airspace opacity in the right lung base. PLEURA: No effusions or pneumothorax. HEART AND MEDIASTINUM: Normal size and contour. BONES AND SOFT TISSUES: No acute findings. IMPRESSION: Airspace opacity in the right lung base may represent pneumonia. Signed by: Dr. Jose Elias Arechiga DO on 04/01/2019 6:24 PM
[2019-04-01] MEDS: VANCOMYCIN 750MG/NS 150ML IVPB 150 ML IV SCH (18:30)
[2019-04-01] MEDS: MEROPENEM 1GM 100 ML IV SCH ×2 (18:35→19:12)
--- NOTE | 2019-04-01 19:24 | Diagnostic Imaging Report ---
EXAM: CT of the abdomen and pelvis WITH contrast HISTORY: lower abd pain COMPARISON: None. TECHNIQUE: The abdomen and pelvis were scanned utilizing a multidetector helical scanner. Coronal and sagittal reformats are provided. PROTOCOL: Routine IV CONTRAST: 100 cc of Isovue-370. ORAL CONTRAST: None, which limits sensitivity and specificity of the exam. RADIATION DOSE: Total DLP: 804.13 mGy*cm Estimated effective dose: (DLP x 0.015 x size factor) Dose modulation, iterative reconstruction, and/or weight based adjustment of the mA/kV was utilized to reduce the radiation dose to as low as reasonably achievable. COMPLICATIONS: None FINDINGS: LOWER THORAX: Patchy right lower lobe interstitial and airspace opacities, greatest in a peribronchial distribution. Moderate cardiomegaly. HEPATOBILIARY: Diffusely decreased attenuation. No mass. No biliary dilation. Metallic clips in the right upper quadrant of the abdomen are compatible with prior cholecystectomy. SPLEEN: Minimal splenomegaly, 13 cm. PANCREAS: No focal masses or ductal dilatation. Diffuse parenchymal atrophy. ADRENALS: No discrete adrenal nodule. KIDNEYS/URETERS: No hydronephrosis, stones, or definite solid mass lesions. PELVIC ORGANS/BLADDER: There are no bladder is partially decompressed, which limits evaluation. GI TRACT: No dilation or wall thickening identified. The appendix is not visualized, but there are no inflammatory changes about the cecum. Prominent sigmoid diverticulosis, without evidence of acute diverticulitis. PERITONEUM / RETROPERITONEUM: No free air or fluid. LYMPH NODES: No pathologically enlarged lymph node. VESSELS: Diffuse scattered atherosclerotic vascular calcifications. BONES: No aggressive osseous lesion or acute fracture. SOFT TISSUES: Unremarkable. IMPRESSION: 1. Patchy right lower lobe interstitial and airspace opacities, considerations include pneumonia or aspiration pneumonitis. 2. Hepatic steatosis. 3. Mild splenomegaly. Signed by: Dr. Dilan Montenegro D.O., M.M.M. on 04/01/2019 7:21 PM
[2019-04-01] MEDS ORDERED: AZITHROMYCIN 500MG/NS 250 ML 250 ML IV SCH (19:45)
[2019-04-01] MEDS ORDERED: DEXTROSE 50% SYRINGE 50 ML IV PRN (19:45)
--- OUTSIDE RECORDS SUMMARY | 2019-04-01 19:47 | XMS REPORT ---
Author Author [facility] Address Unknown Phone Unavailable Care Team Providers Care Electrical Line Splicer Name Role Phone Haleigh WING Unavailable Unavailable Problems This patient has no known problems. Allergies, Adverse Reactions, Alerts This patient has no known allergies or adverse reactions. Medications This patient has no known medications. Results Test Description Test Time Test Comments Text Results Atomic Results Result Comments CT ABDOMEN/PELVIS W 2019-04-01 19:13:00 [place] [id number] [place] [id number] Patient Name: JOHANNE LOGAN MR #: [id number] : 1945 Age/Sex: 73/F Req #: [id number] Adm Physician: Ordered by: NATHAN WING MD Report #: [id number] Location: ER Room/Bed: Procedure: [id number] CT/CT ABDOMEN/PELVIS W Exam Date: 04/01/19 Exam Time: 1837 REPORT STATUS: Signed EXAM: CT of the abdomen and pelvis WITH contrast HISTORY: lower abd pain COMPARISON: None. TECHNIQUE: The abdomen and pelvis were scanned utilizing a multidetector helical scanner. Coronal and sagittal reformats are provided. PROTOCOL: Routine IV CONTRAST: 100 cc of Isovue-370. ORAL CONTRAST: None, which limits sensitivity and specificity of the exam. RADIATION DOSE: Total DLP: 804.13 mGy*cm Estimated effective dose: (DLP x 0.015 x size factor) Dose modulation, iterative reconstruction, and/or weight based adjustment of the mA/kV was utilized to reduce the radiation dose to as low as reasonably achievable. COMPLICATIONS: None FINDINGS: LOWER THORAX: Patchy right lower lobe interstitial and airspace opacities, greatest in a peribronchial distribution. Moderate cardiomegaly. HEPATOBILIARY: Diffusely decreased attenuation. No mass. No biliary dilation. Metallic clips in the right upper quadrant of the abdomen are compatible with prior cholecystectomy. SPLEEN: Minimal splenomegaly, 13 cm. PANCREAS: No focal masses or ductal dilatation. Diffuse parenchymal atrophy. ADRENALS: No discrete adrenal nodule. KIDNEYS/URETERS: No hydronephrosis, stones, or definite solid mass lesions. PELVIC ORGANS/BLADDER: There are no bladder is partially decompressed, which limits evaluation. GI TRACT: No dilation or wall thickening identified. The appendix is not visualized, but there are no inflammatory changes about the cecum. Prominent sigmoid diverticulosis, without evidence of acute diverticulitis. PERITONEUM / RETROPERITONEUM: No free air or fluid. LYMPH NODES: No pathologically enlarged lymph node. VESSELS: Diffuse scattered atherosclerotic vascular calcifications. BONES: No aggressive osseous lesion or acute fracture. SOFT TISSUES: Unremarkable. IMPRESSION: 1. Patchy right lower lobe interstitial and airspace opacities, considerations include pneumonia or aspiration pneumonitis. 2. Hepatic steatosis. 3. Mild splenomegaly. Signed by: Dr. Shelbi Montenegro DVelO., M.M.M. on 04/01/2019 7:21 PM Dictated By: SHELBI MONTENEGRO DO 20 Transcribed By: KUSHAL on 04/01/191920 COPY TO: NATHAN WING MD CHEST SINGLE (PORTABLE) 2019-04-01 18:22:00 [place] [address] Patient Name: JOHANNE LOGAN MR #: [id number] : 1945 Age/Sex: 73/F Req #: [id number] Adm Physician: Ordered by: NATHAN WING MD Report #: [id number] Location: ER Room/Bed: Procedure: [id number] DX/CHEST SINGLE (PORTABLE) Exam Date: 04/01/19 Exam Time: 1549 REPORT STATUS: Signed EXAM: CHEST SINGLE (PORTABLE), AP Portable DATE: 04/01/2019 Time stamp on exam: 3:49 PM INDICATION: Altered mental status COMPARISON: None FINDINGS: LINES/TUBES: None LUNGS: No edema. Right lower lobe calcified granuloma. Airspace opacity in the right lung base. PLEURA: No effusions or pneumothorax. HEART AND MEDIASTINUM: Normal size and contour. BONES AND SOFT TISSUES: No acute findings. IMPRESSION: Airspace opacity in the right lung base may represent pneumonia. Signed by: Dr. Davian Arechiga DO on 04/01/2019 6:24 PM Dictated By: DAVIAN ARECHIGA DO 23 Transcribed By: KUSHAL on 04/01/191823 COPY TO: NATHAN WING MD CT BRAIN WO 2019-04-01 16:00:00 [place] [address] Patient Name: JOHANNE LOGAN MR #: [id number] : 1945 Age/Sex: 73/F Req #: [id number] Adm Physician: Ordered by: NATHAN WING MD Report #: [id number] Location: ER Room/Bed: Procedure: CT/CT BRAIN WO Exam Date: Exam Time: REPORT STATUS: Signed Examination: CT head without contrast Clinical Indication: Altered mental status. Technique: Transaxial noncontrast images from the skull base through the vertex were obtained. Sagittal and coronal reformatted images were done. Dose modulation, iterative reconstruction, and/or weight based adjustment of the mA/kV was utilized to reduce the radiation dose to as low as reasonably achievable. Comparison: None. Findings: Scalp: No abnormalities. Bones: Intact. No fractures. No blastic or lytic lesions. Brain sulci: Appropriate for patient's age. Ventricles: Normal in size and configuration. No hydrocephalus. . Extra-axial space: No abnormalities. Parenchyma: There are mild confluent areas of low-attenuation within subcortical and periventricular white matter, nonspecific, but could represent microvascular ischemic disease. No masses, hemorrhage, or acute or chronic cortical based vascular insults. Suprasellar region: No abnormalities. Craniocervical junction: The foramen magnum is patent. No Chiari one m alformation. Incidental findings: Atherosclerotic calcification of the cavernous and supraclinoid internal carotid and V4 segments of the bilateral vertebral arteries. Impression: 1. No acute intracranial finding. 2. Mild chronic microvascular ischemic change. Signed by: Dr. Regina Fam M.D. on 04/01/2019 4:01 PM Dictated By: REGINA JENNINGS MD 1601 Transcribed By: KUSHAL on 04/01/19 1601 COPY TO: NATHAN WING MD
--- NOTE | 2019-04-01 21:20 | NUR ---
Patient arrived to unit from ED as new admit with dx of AMS, PNA and UTI. Patient currently alert and oriented x2-3 (i.e. pt tends to forget recent memory). Patient ambulatory with standby assist. IVF (NS at 100ml/hr) and on scheduled IV antibiotics. Call salgado within reach. Will monitor closely.
[2019-04-01 21:40] VITALS: BP 184/84
[2019-04-01] MEDS ORDERED: IOPAMIDOL 370 MG/ML 200 ML INFUS..BTL INJ ONE (21:58)
[2019-04-01] MEDS ORDERED: SODIUM CHLORIDE 0.9% 50ML 50 ML ONE (21:58)
[2019-04-01] MEDS: SODIUM CHLORIDE 0.9% 1000ML 1,000 ML IV SCH (22:00)
[2019-04-01] MEDS: INSULIN LISPRO 100 UNIT/1 ML 3ML VIAL SQ SCH (22:19)
[2019-04-01 22:20] VITALS: BP 174/77
[2019-04-01] MEDS: LABETALOL HCL 100 MG TAB PO SCH (22:50)
[2019-04-01] MEDS ORDERED: VANCOMYCIN IV ONE (23:45)
[2019-04-01] MEDS ORDERED: [UNRECOGNIZED DRUG - OTHER] IV ONE (23:45)
[2019-04-02] VITALS (8 sets, daily range): BP systolic 152–188; BP diastolic 65–77
--- NOTE | 2019-04-02 02:45 | NUR ---
Patient had a bathroom bath with assistance from CORE MAKER (Za). Patient tolerated bath well.
[2019-04-02] MEDS: MEROPENEM 1GM 100 ML IV SCH ×2 (05:55→17:00)
--- NOTE | 2019-04-02 06:47 | NUR ---
H&P cc: confusion HPI: 73yoF, PCP , developed confusion with cough and sob for 1 week. PMH: ESBL E.coli UTI, sepsis, lymphedema, CHF, COPD, bacteremia, AMS, former smoker, HTN PSHx: lap johnny, hysterectomy allerige;s see emr Fh/SH: single; quit cigs; lives with daughter meds; see MAR ROS: unreliable v.s revd PE tired appearing anicteric ns1s2 mod bs soft nd nd no e/t skin dry flat affect awake; confused labs/meds; revd A/P: 73yoF Right PNA DM2 UTI CORY HTN Morbid obesity BMI 44 Hepatic steatosis PLAN Merrem/vanco/azithro f/u cx hba1c/lipids home meds PT consult scd/pepcileda Sosa MD, PhD.
[2019-04-02 07:07] LABS: CREATINE KINASE MB 1.1 ng/mL (0-5.0)
[2019-04-02] MEDS: FAMOTIDINE 20 MG TAB PO SCH ×2 (07:30→16:47)
[2019-04-02] MEDS: INSULIN LISPRO 100 UNIT/1 ML 3ML VIAL SQ SCH ×4 (07:30→21:25)
--- NOTE | 2019-04-02 07:30 | NUR ---
This pt. is in bed awake and alert. She expresses desire to sit up in the bedside chair. She was advised that once vital signs are completed she will be assisted to the chair.
[2019-04-02 07:37] LABS: CHOL/HDL RATIO 2.9 (3.0-3.6); CREATINE KINASE 57 IU/L (29-168)
[2019-04-02] MEDS: LABETALOL HCL 100 MG TAB PO SCH ×2 (08:29→21:24)
[2019-04-02] MEDS: VANCOMYCIN 750MG/NS 150ML IVPB 150 ML IV SCH ×2 (08:29→21:40)
--- NOTE | 2019-04-02 08:30 | NUR ---
The pt. called for assistance to the bathroom and was placed in the bedside chair for breakfast.
--- NOTE | 2019-04-02 13:59 | NUR ---
SPOKE WITH PT ABOUT POSSIBLE PLAN, SHE STATES SHE HAS BEEN IN FACILITIES PRIOR TO THIS VISIT APPROXIMATELY 1 AND A HALF YEARS AGO, SHE HAD A BAD EXPERIENCE WITH [facility] AND THINKS COURTYARDS OF IVOR SMELLS BAD, SHE STATES IF THE PLAN IS TO GO TO A FACILITY SHE WOULD LIKE TO GO TO [facility]. WILL PROCEED IF GET AN ORDER.
[2019-04-02] MEDS: SODIUM CHLORIDE 0.9% 1000ML 1,000 ML IV SCH ×2 (16:47→17:00)
--- NOTE | 2019-04-02 19:10 | NUR ---
Patient visited in room during nursing rounds. Patient currently alert and oriented x2-3 (i.e. pt tends to forget recent memory). Patient ambulatory with standby assist. IVF (NS at 100ml/hr) and on scheduled IV antibiotics. Call salgado within reach. Will monitor closely.
[2019-04-02] MEDS: AZITHROMYCIN 500MG/NS 250 ML 250 ML IV SCH (22:56)
[2019-04-02] MEDS ORDERED: NITROGLYCERIN 0.4 MG SUBL SL PRN (23:30)
[2019-04-02] MEDS: ENALAPRILAT IV INJ 1.25 MG/ML VIAL IV SCH (23:32)
[2019-04-02] MEDS: CARVEDILOL 12.5 MG TAB PO SCH (23:40)
[2019-04-02] MEDS: ATORVASTATIN 20 MG TAB PO SCH (23:40)
[2019-04-03] VITALS (8 sets, daily range): BP systolic 160–176; BP diastolic 72–77
--- NOTE | 2019-04-03 05:00 | NUR ---
Patient awake and stated unable to sleep. Nurse watched pt closely in room at bedside to prevent fall events.
[2019-04-03] MEDS: MEROPENEM 1GM 100 ML IV SCH ×2 (05:48→17:07)
--- NOTE | 2019-04-03 06:00 | NUR ---
Patient asleep. receiving IV antibiotics. Pt in stable condition.
[2019-04-03] MEDS: INSULIN LISPRO 100 UNIT/1 ML 3ML VIAL SQ SCH ×4 (07:30→20:36)
--- NOTE | 2019-04-03 07:30 | NUR ---
PATIENT IS IN STABLE CONDITION WITH NO S/S OF RESPIRATORY DISTRESS. NO PAIN VOICED. IV ANTIBIOTICS INFUSING. TELEMETRY APPLIED. BED ALARM ON. CALL LIGHT IS WITHIN REACH, PATIENT INSTRUCTED TO CALL FOR ASSISTANCE NEEDED.
--- NOTE | 2019-04-03 08:22 | NUR ---
CALLED TO INFORM DR. SEGURA OF PATIENT'S URINE CULTURE RESULTS- ORDER FOR NIIO TROUGH RECEIVED.
[2019-04-03] MEDS: GABAPENTIN 400 MG CAP PO SCH ×2 (08:47→17:01)
[2019-04-03] MEDS: GLIPIZIDE 5 MG TAB ER PO SCH ×2 (08:47→17:01)
[2019-04-03] MEDS: TOLTERODINE TARTRATE 4 MG CAPCR PO SCH (08:47)
[2019-04-03] MEDS: ALLOPURINOL 100 MG TAB PO SCH (08:47)
[2019-04-03] MEDS: LABETALOL HCL 100 MG TAB PO SCH ×2 (08:47→20:35)
[2019-04-03] MEDS: CITALOPRAM HYDROBROMIDE 20 MG TAB PO SCH (08:48)
[2019-04-03] MEDS: LOSARTAN POTASSIUM 100 MG TAB PO SCH (08:48)
[2019-04-03] MEDS: ASPIRIN 81 MG CHEW TAB PO SCH (08:48)
[2019-04-03] MEDS: CARVEDILOL 12.5 MG TAB PO SCH ×2 (08:48→17:01)
[2019-04-03] MEDS: ENALAPRILAT IV INJ 1.25 MG/ML VIAL IV SCH (08:48)
[2019-04-03] MEDS: FAMOTIDINE 20 MG TAB PO SCH ×2 (08:48→17:01)
--- NOTE | 2019-04-03 09:19 | NUR ---
CALLED AND SPOKE WITH DR. SEGURA REGARDING CRITICAL VANCO TROUGH OF 14.0- ORDER TO GIVEN VANCOMYCIN.
[2019-04-03] MEDS: VANCOMYCIN 750MG/NS 150ML IVPB 150 ML IV SCH (09:52)
[2019-04-03] MEDS: SODIUM CHLORIDE 0.9% 1000ML 1,000 ML IV SCH (10:04)
--- NOTE | 2019-04-03 10:57 | NUR ---
IM- progress ntoe O/N; no events ROS: unreliable v.s revd PE tired appearing anicteric ns1s2 mod bs soft nd nd no e/t skin dry flat affect awake; confused labs/meds; revd A/P: 73yoF Right PNA DM2 UTI CORY HTN Morbid obesity BMI 44 Hepatic steatosis PLAN Merrem/vanco/azithro f/u cx hba1c/lipids home meds PT consult scd/pepcid ESBL E.coli UTI- cont merrem; d/c vanco; check labs; Ivan Sosa MD, PhD.
[2019-04-03 11:12] LABS: BLOOD UREA NITROGEN 13 mg/dL (7-26); BUN/CREATININE RATIO 16 (6-25); CALCIUM 9.1 mg/dL (8.4-10.2); CARBON DIOXIDE 23 mmol/L (22-29); CHLORIDE 107 mmol/L (98-107); CREATININE, SERUM 0.81 mg/dL (0.57-1.11); EST GLOMERULAR FILTRATION RATE > 60 ML/MIN (60-); GLUCOSE 174 mg/dL (74-118); SODIUM 139 mmol/L (136-145)
--- NOTE | 2019-04-03 11:23 | NUR ---
CM TO BEDSIDE TO DISCUSS IMM MEDICARE PATIENT'S RIGHTS. QUESTIONS ANSWERED AND SIGNATURE OBTAINED. PATIENT VERBALIZED UNDERSTANDING OF DISCUSSION. COPY OF LETTER TO PATIENT'S CHART AND IN TRANSITION OF CARE FOLDER AT PATIENT'S BEDSIDE.
[2019-04-03 11:26] LABS: BASOPHILS % 0.3 % (0.0-1.0); EOSINOPHILS # (AUTO) 0.1 (0.0-0.4); EOSINOPHILS % 0.5 % (0.0-6.0); HEMATOCRIT 30.2 % (34.2-44.1); HEMOGLOBIN 9.7 g/dL (12.0-16.0); LYMPHOCYTES # (AUTO) 1.6 (1.0-3.2); LYMPHOCYTES % 11.8 % (18.0-39.1); MEAN CORPUSCULAR HEMOGLOBIN 27.3 pg (28-32); MEAN CORPUSCULAR HGB CONC 32.1 g/dL (31-35); MEAN CORPUSCULAR VOLUME 85.1 fL (81-99); MONOCYTES # (AUTO) 1.1 (0.2-0.8); MONOCYTES % 8.4 % (4.4-11.3); NEUTROPHILS # (AUTO) 10.6 (2.1-6.9); NEUTROPHILS % 78.3 % (38.7-80.0); PLATELET COUNT 233 x10e3/uL (140-360); RED BLOOD COUNT 3.55 x10e6/uL (3.6-5.1); RED CELL DISTRIBUTION WIDTH 15.2 % (11.7-14.4)
--- NOTE | 2019-04-03 16:31 | NUR ---
CALL PLACED OUT TO DR. SEGURA REGARDING PATIENT'S LARGE LOOSE BM- DR. SEGURA ORDER STOOL SAMPLE FOR C.DIFF AND IV FLAGYL 500MG Q8H.
--- NOTE | 2019-04-03 19:05 | NUR ---
PATIENT IS IN STABLE CONDITION WITH NO S/S OF RESPIRATORY DISTRESS. NO PAIN VOICED. IV FLUIDS INFUSING. TELEMETRY APPLIED. 02 APPLIED. BED ALARM ON. CALL LIGHT IS WITHIN REACH, PATIENT INSTRUCTED TO CALL FOR ASSISTANCE NEEDED. BEDSIDE REPORT GIVEN TO ONCOMING NURSE.
--- NOTE | 2019-04-03 19:15 | NUR ---
patient received awake, alert, lying quietly in bed. no c/o pain noted. ivf continue to infuse without difficulty. pm assessment complete. bed alarm on and call salgado placed within reach. patient instructed to call for assistance when needed.
[2019-04-03] MEDS: ATORVASTATIN 20 MG TAB PO SCH (20:35)
[2019-04-03] MEDS: METRONIDAZOLE 500MG/NS 100ML 100 ML IV SCH (22:00)
[2019-04-03] MEDS: BENZONATATE 100 MG CAP PO SCH (22:00)
[2019-04-03] MEDS: AZITHROMYCIN 500MG/NS 250 ML 250 ML IV SCH (22:00)
--- NOTE | 2019-04-03 23:30 | NUR ---
patient ambulatory to bathroom with assistance without difficulty. patient voids without difficulty. patient remains in diaper per patients request.
[2019-04-04] VITALS (9 sets, daily range): BP systolic 130–175; BP diastolic 60–72
[2019-04-04] MEDS: SODIUM CHLORIDE 0.9% 1000ML 1,000 ML IV SCH ×3 (03:40→17:02)
--- NOTE | 2019-04-04 04:00 | NUR ---
patient appears to be resting quietly. no c/o pain noted.
--- NOTE | 2019-04-04 05:00 | NUR ---
iv site to right ac cleaned and new dressing applied. ivf/iv abx continue to infuse without difficulty.
[2019-04-04] MEDS: METRONIDAZOLE 500MG/NS 100ML 100 ML IV SCH ×3 (05:16→21:05)
[2019-04-04] MEDS: BENZONATATE 100 MG CAP PO SCH ×3 (05:16→21:06)
[2019-04-04] MEDS: MEROPENEM 1GM 100 ML IV SCH ×2 (05:16→17:02)
--- NOTE | 2019-04-04 06:55 | NUR ---
PATIENT IS IN STABLE CONDITION WITH NO S/S OF RESPIRATORY DISTRESS. NO PAIN VOICED. IV FLUIDS INFUSING. 02 APPLIED. CALL LIGHT IS WITHIN REACH, PATIENT INSTRUCTED TO CALL FOR ASSISTANCE NEEDED.
[2019-04-04] MEDS: INSULIN LISPRO 100 UNIT/1 ML 3ML VIAL SQ SCH ×4 (07:30→20:06)
[2019-04-04] MEDS: TOLTERODINE TARTRATE 4 MG CAPCR PO SCH (08:26)
[2019-04-04] MEDS: CARVEDILOL 12.5 MG TAB PO SCH (08:26)
[2019-04-04] MEDS: FAMOTIDINE 20 MG TAB PO SCH ×2 (08:26→17:02)
[2019-04-04] MEDS: ASPIRIN 81 MG CHEW TAB PO SCH (08:26)
[2019-04-04] MEDS: GABAPENTIN 400 MG CAP PO SCH ×2 (08:26→17:02)
[2019-04-04] MEDS: LABETALOL HCL 100 MG TAB PO SCH ×2 (08:26→20:10)
[2019-04-04] MEDS: ENALAPRILAT IV INJ 1.25 MG/ML VIAL IV SCH (08:26)
[2019-04-04] MEDS: ALLOPURINOL 100 MG TAB PO SCH (08:26)
[2019-04-04] MEDS: LOSARTAN POTASSIUM 100 MG TAB PO SCH (08:26)
[2019-04-04] MEDS: GLIPIZIDE 5 MG TAB ER PO SCH ×2 (08:26→17:02)
[2019-04-04] MEDS: CITALOPRAM HYDROBROMIDE 20 MG TAB PO SCH (08:26)
[2019-04-04 09:12] LABS: BASOPHILS % 0.3 % (0.0-1.0); EOSINOPHILS # (AUTO) 0.2 (0.0-0.4); EOSINOPHILS % 1.4 % (0.0-6.0); HEMOGLOBIN 10.6 g/dL (12.0-16.0); LYMPHOCYTES # (AUTO) 1.8 (1.0-3.2); LYMPHOCYTES % 13.3 % (18.0-39.1); MEAN CORPUSCULAR HEMOGLOBIN 27.2 pg (28-32); MEAN CORPUSCULAR HGB CONC 31.2 g/dL (31-35); MEAN CORPUSCULAR VOLUME 87.4 fL (81-99); MONOCYTES # (AUTO) 1.4 (0.2-0.8); MONOCYTES % 10.6 % (4.4-11.3); NEUTROPHILS # (AUTO) 9.7 (2.1-6.9); NEUTROPHILS % 73.6 % (38.7-80.0); PLATELET COUNT 252 x10e3/uL (140-360); RED BLOOD COUNT 3.89 x10e6/uL (3.6-5.1); RED CELL DISTRIBUTION WIDTH 15.3 % (11.7-14.4)
--- NOTE | 2019-04-04 09:16 | NUR ---
MESSAGE LEFT FOR DR. SEGURA TO INFORM HIM OF THE PATIENT'S SEPTIC SCREENING RESULT: SIRS. RN ASKED FOR LACTIC ACID LAB ORDER- AWAITING CALLBACK.
[2019-04-04 10:26] LABS: ANION GAP 12.1 mmol/L (8-16); BLOOD UREA NITROGEN 13 mg/dL (7-26); BUN/CREATININE RATIO 15 (6-25); CALCIUM 8.5 mg/dL (8.4-10.2); CARBON DIOXIDE 25 mmol/L (22-29); CHLORIDE 107 mmol/L (98-107); CREATININE, SERUM 0.84 mg/dL (0.57-1.11); EST GLOMERULAR FILTRATION RATE > 60 ML/MIN (60-); GLUCOSE 172 mg/dL (74-118); POTASSIUM 4.1 mmol/L (3.5-5.1); SODIUM 140 mmol/L (136-145)
--- NOTE | 2019-04-04 10:52 | NUR ---
LACTIC ACID ORDER RECEIVED.
--- NOTE | 2019-04-04 11:14 | NUR ---
MESSAGE LEFT FOR DR. SEGURA REGARDING PATIENT'S ELEVATED BP OF 175/72- AWAITING CALLBACK.
--- NOTE | 2019-04-04 11:55 | NUR ---
IM- progress ntoe O/N; no events ROS: unreliable v.s revd PE tired appearing anicteric ns1s2 mod bs soft nd nd no e/t skin dry flat affect awake; confused labs/meds; revd A/P: 73yoF Right PNA DM2 UTI CORY HTN Morbid obesity BMI 44 Hepatic steatosis PLAN Merrem/vanco/azithro f/u cx hba1c/lipids home meds PT consult scd/pepcid ESBL E.coli UTI- cont merrem; d/c vanco; check labs; Control BP; cont care; Ivan Sosa MD, PhD.
[2019-04-04] MEDS ORDERED: HYDRALAZINE HCL 25 MG TAB PO SCH (12:00)
--- NOTE | 2019-04-04 14:28 | NUR ---
PATIENT DOES NOT WANT TELEMETRY TO BE PLACED ON HER AGAIN INCLUDING THE CONT PULSE OX- PATIENT REFUSES TO HAVE IT ON.
--- NOTE | 2019-04-04 16:12 | NUR ---
PATIENT CONTINUES TO SIT UP IN THE CHAIR- PATIENT IS IN STABLE CONDITION WITH NO S/S OF RESPIRATORY DISTRESS. PATIENT WILL CONTINUE TO SIT UP IN THE CHAIR FOR HER DINNER TRAY. CALL LIGHT IS WITHIN REACH, PATIENT INSTRUCTED TO CALL FOR ASSISTANCE NEEDED.
--- NOTE | 2019-04-04 17:52 | NUR ---
DR. SEGURA AWARE PATIENT DOES NOT WANT TO HAVE TELEMETRY OR A CONT PULSE OX APPLIED- ORDER TO DC TELE
--- NOTE | 2019-04-04 18:46 | NUR ---
PATIENT IS RESTING IN BED- IN STABLE CONDITION WITH NO S/S OF RESPIRATORY DISTRESS. NO PAIN VOICED. IV ANTIBIOTIC INFUSING. BED ALARM ON. CALL LIGHT IS WITHIN REACH, PATIENT INSTRUCTED TO CALL FOR ASSISTANCE NEEDED. BEDSIDE REPORT GIVEN TO ONCOMING NURSE.
--- NOTE | 2019-04-04 19:00 | NUR ---
patient received awake, lying quietly in bed. respirations even and unlabored. 02/2l/nc in use. ivf continue to infuse without difficulty. pm assessment complete. side rails up x 3, bed alarm remains on and call salgado placed within reach. patient instructed to call for assistance when needed.
[2019-04-04] MEDS: ATORVASTATIN 20 MG TAB PO SCH (20:10)
[2019-04-04] MEDS: HYDRALAZINE HCL 25 MG TAB PO SCH (20:10)
[2019-04-04] MEDS: AZITHROMYCIN 500MG/NS 250 ML 250 ML IV SCH (21:05)
--- NOTE | 2019-04-05 | NUR ---
patient appears to be resting quietly. no c/o pain noted at this time.
[2019-04-05 05:04] VITALS: BP 151/66
[2019-04-05] MEDS: METRONIDAZOLE 500MG/NS 100ML 100 ML IV SCH ×3 (05:27→21:00)
[2019-04-05] MEDS: BENZONATATE 100 MG CAP PO SCH ×3 (05:28→21:00)
[2019-04-05] MEDS: MEROPENEM 1GM 100 ML IV SCH ×2 (05:28→17:06)
--- NOTE | 2019-04-05 05:29 | NUR ---
patient oob to chair with assistance. call salgado placed within reach. patient instructed to call for assistance when needed.
--- NOTE | 2019-04-05 06:57 | NUR ---
PATIENT IS AWAKE AND IN STABLE CONDITION WITH NO S/S OF RESPIRATORY DISTRESS. PATIENT DENIES PAIN. IV FLUIDS INFUSING. BED ALARM ON. CALL LIGHT IS WITHIN REACH, PATIENT INSTRUCTED TO CALL FOR ASSISTANCE NEEDED.
--- NOTE | 2019-04-05 07:05 | NUR ---
PATIENT'S BG IS 59- PATIENT IS AWAKE AND IN STABLE CONDITION WITH NO S/S OF RESPIRATORY DISTRESS. ORANGE JUICE GIVEN TO PATIENT.
[2019-04-05] MEDS: INSULIN LISPRO 100 UNIT/1 ML 3ML VIAL SQ SCH ×4 (07:30→19:50)
[2019-04-05 07:39] VITALS: BP 181/74
[2019-04-05 07:47] VITALS: BP 181/74
--- NOTE | 2019-04-05 08:11 | NUR ---
PATIENT'S BG REASSESSED RESULT 72 AND BREAKFAST TRAY PROVIDED TO PATIENT. PATIENT IS IN STABLE CONDITION WITH NO S/S OF RESPIRATORY DISTRESS. PATIENT IS SITTING UP ON THE SIDE OF THE BED TO EAT HER BREAKFAST.
[2019-04-05] MEDS: ENALAPRILAT IV INJ 1.25 MG/ML VIAL IV SCH (08:20)
[2019-04-05] MEDS: FAMOTIDINE 20 MG TAB PO SCH ×2 (08:20→16:12)
[2019-04-05] MEDS: GABAPENTIN 400 MG CAP PO SCH ×2 (08:21→16:12)
[2019-04-05] MEDS: HYDRALAZINE HCL 25 MG TAB PO SCH ×3 (08:21→20:31)
[2019-04-05] MEDS: CITALOPRAM HYDROBROMIDE 20 MG TAB PO SCH (08:21)
[2019-04-05] MEDS: ASPIRIN 81 MG CHEW TAB PO SCH (08:21)
[2019-04-05] MEDS: GLIPIZIDE 5 MG TAB ER PO SCH ×2 (08:21→16:12)
[2019-04-05] MEDS: LOSARTAN POTASSIUM 100 MG TAB PO SCH (08:21)
[2019-04-05] MEDS: ALLOPURINOL 100 MG TAB PO SCH (08:21)
[2019-04-05] MEDS: LABETALOL HCL 100 MG TAB PO SCH ×2 (08:21→20:32)
[2019-04-05] MEDS: TOLTERODINE TARTRATE 4 MG CAPCR PO SCH (08:21)
[2019-04-05] MEDS: SODIUM CHLORIDE 0.9% 1000ML 1,000 ML IV SCH ×2 (09:35→13:45)
--- NOTE | 2019-04-05 09:41 | NUR ---
PCT OFFERED PATIENT A SHOWER TODAY AND PATIENT REFUSED
[2019-04-05 11:42] VITALS: BP 132/59
--- NOTE | 2019-04-05 12:19 | NUR ---
PATIENT HAD BM- CLEAN DIAPER APPLIED. PATIENT SITTING UP IN A CHAIR AND WILL EAT LUNCH.
--- NOTE | 2019-04-05 12:48 | NUR ---
IM- progress ntoe O/N; no events ROS: unreliable v.s revd PE tired appearing anicteric ns1s2 mod bs soft nd nd no e/t skin dry flat affect awake; confused labs/meds; revd A/P: 73yoF Right PNA DM2 UTI CORY HTN Morbid obesity BMI 44 Hepatic steatosis PLAN Merrem/vanco/azithro f/u cx hba1c/lipids home meds PT consult scd/pepcid ESBL E.coli UTI- cont merrem; d/c vanco; check labs; Control BP; cont care; Add CCB; cont merrem; Ivan Sosa MD, PhD.
[2019-04-05] MEDS: NIFEDIPINE CR 30 MG TAB PO SCH ×2 (13:18→20:32)
[2019-04-05 16:02] VITALS: BP 183/77
--- NOTE | 2019-04-05 16:17 | NUR ---
SPOKE WITH DR. SEGURA ABOUT PATIENT'S FLUID RATE- ORDER TO REDUCE THE FLUID RATE TO 40CC/HR.
--- NOTE | 2019-04-05 18:48 | NUR ---
PATIENT IS AWAKE, RESTING IN BED AND IS IN STABLE CONDITION WITH NO S/S OF RESPIRATORY DISTRESS. NO PAIN VOICED. IV FLUIDS INFUSING. DIAPER APPLIED. CALL LIGHT IS WITHIN REACH, PATIENT INSTRUCTED TO CALL FOR ASSISTANCE NEEDED. REPORT GIVEN TO ONCOMING NURSE.
[2019-04-05 20:00] VITALS: BP 140/63
[2019-04-05] MEDS: ATORVASTATIN 20 MG TAB PO SCH (20:31)
[2019-04-05] MEDS: AZITHROMYCIN 500MG/NS 250 ML 250 ML IV SCH (21:00)
[2019-04-06] VITALS: BP 137/62
[2019-04-06 04:00] VITALS: BP 137/62
[2019-04-06] MEDS: BENZONATATE 100 MG CAP PO SCH ×2 (05:05→14:34)
[2019-04-06] MEDS: MEROPENEM 1GM 100 ML IV SCH (05:05)
[2019-04-06] MEDS: METRONIDAZOLE 500MG/NS 100ML 100 ML IV SCH ×2 (05:05→14:35)
[2019-04-06] MEDS ORDERED: ALENDRONATE SODIUM 70 MG TAB PO SCH (06:00)
[2019-04-06] MEDS ORDERED: FAMOTIDINE20 MG PO (07:15)
[2019-04-06] MEDS ORDERED: NITROFURANTOIN100 MG PO (07:15)
[2019-04-06] MEDS ORDERED: TESSALON PERLE100 MG PO (07:15)
--- NOTE | 2019-04-06 07:16 | NUR ---
DIscharge summary: Principal dx: Right PNA ESBL E.coli UTI CORY Hepatitic steatosis Secondary Dx: DM2 HTN Morbid obesity BMI 44 PLAN Merrem/vanco/azithro f/u cx hba1c/lipids home meds PT consult scd/pepcid ESBL E.coli UTI- cont merrem; d/c vanco; check labs; Control BP; cont care; Add CCB; cont merrem; d/c home d/c meds: include nitrofurantoin f/u PCP 1 week Stable Ivan Sosa MD, PhD.
[2019-04-06 07:30] VITALS: BP 150/65
[2019-04-06] MEDS: INSULIN LISPRO 100 UNIT/1 ML 3ML VIAL SQ SCH ×2 (07:30→11:30)
--- NOTE | 2019-04-06 07:30 | NUR ---
PT ASSISTED UP TO BR TOLERATED WELL ,O2 REMOVED TO CHECK O2 SATS ON RA,
[2019-04-06 07:56] LABS: BASOPHILS % 0.3 % (0.0-1.0); EOSINOPHILS # (AUTO) 0.3 (0.0-0.4); EOSINOPHILS % 2.4 % (0.0-6.0); HEMATOCRIT 28.9 % (34.2-44.1); LYMPHOCYTES % 16.7 % (18.0-39.1); MEAN CORPUSCULAR HGB CONC 31.1 g/dL (31-35); MEAN CORPUSCULAR VOLUME 86.8 fL (81-99); MONOCYTES % 8.2 % (4.4-11.3); NEUTROPHILS # (AUTO) 8.7 (2.1-6.9); NEUTROPHILS % 71.7 % (38.7-80.0); PLATELET COUNT 237 x10e3/uL (140-360); RED BLOOD COUNT 3.33 x10e6/uL (3.6-5.1); RED CELL DISTRIBUTION WIDTH 15.6 % (11.7-14.4)
[2019-04-06 08:00] VITALS: BP 150/65
--- NOTE | 2019-04-06 08:00 | NUR ---
O2 SATS CHECKED ON RA 80 % NOTIFIED CASE MANAGEMENT FOR HOME O2.
[2019-04-06 08:02] LABS: ANION GAP 10.6 mmol/L (8-16); CREATININE, SERUM 0.92 mg/dL (0.57-1.11); POTASSIUM 3.6 mmol/L (3.5-5.1)
[2019-04-06] MEDS ORDERED: FUROSEMIDE INJ 10 MG/ML 4 ML VIAL IV ONE (08:15)
[2019-04-06] MEDS: FAMOTIDINE 20 MG TAB PO SCH (08:30)
[2019-04-06] MEDS: LABETALOL HCL 100 MG TAB PO SCH (08:30)
[2019-04-06] MEDS: TOLTERODINE TARTRATE 4 MG CAPCR PO SCH (08:30)
[2019-04-06] MEDS: ASPIRIN 81 MG CHEW TAB PO SCH (08:30)
[2019-04-06] MEDS: ENALAPRILAT IV INJ 1.25 MG/ML VIAL IV SCH (08:30)
[2019-04-06] MEDS: ALLOPURINOL 100 MG TAB PO SCH (08:30)
[2019-04-06] MEDS: HYDRALAZINE HCL 25 MG TAB PO SCH ×2 (08:30→14:35)
[2019-04-06] MEDS: GLIPIZIDE 5 MG TAB ER PO SCH (08:30)
[2019-04-06] MEDS: NIFEDIPINE CR 30 MG TAB PO SCH (08:30)
[2019-04-06] MEDS: GABAPENTIN 400 MG CAP PO SCH (08:30)
[2019-04-06] MEDS: CITALOPRAM HYDROBROMIDE 20 MG TAB PO SCH (08:30)
[2019-04-06] MEDS: LOSARTAN POTASSIUM 100 MG TAB PO SCH (08:30)
[2019-04-06 12:00] VITALS: BP 135/62
--- NOTE | 2019-04-06 13:02 | Diagnostic Imaging Report ---
EXAM: CHEST 2 VIEWS, INDICATION: Evaluate pneumonia. COMPARISON: Chest radiograph 04/01/2019. CT abdomen/pelvis 04/01/2019. FINDINGS: LINES/TUBES: None LUNGS: No edema. Right lower lung calcified granuloma. Persistent patchy opacities in the right lower lung. PLEURA: No effusions or pneumothorax. HEART AND MEDIASTINUM: Normal size and contour. Atherosclerotic calcifications of the aortic arch. BONES AND SOFT TISSUES: No acute findings. IMPRESSION: Persistent patchy opacities in the right lower lung, suggestive of pneumonia. Recommend follow-up chest radiograph in 6-8 weeks to assess for resolution. Signed by: Dr. Emily Casey MD on 04/06/2019 12:58 PM
== END 2019-04-06 15:50 | disposition home or self-care (01) | DRG 871 ==
LOC: ER 14:55 → ERHOLD 19:43 → MED/SURG3 21:24
PROVIDERS: ADMIT Internal Medicine; ATTEND Internal Medicine
DX: A41.9 Sepsis, unspecified organism (principal); J18.9 Pneumonia, unspecified organism; G93.41 Metabolic encephalopathy; N39.0 Urinary tract infection, site not specified; N17.9 Acute kidney failure, unspecified; Z68.41 Body mass index [BMI] 40.0-44.9, adult; R65.20 Severe sepsis without septic shock; E11.9 Type 2 diabetes mellitus without complications; E66.01 Morbid (severe) obesity due to excess calories; K76.0 Fatty (change of) liver, not elsewhere classified; B96.20 Unspecified Escherichia coli [E. coli] as the cause of diseases classified elsewhere; Z16.12 Extended spectrum beta lactamase (ESBL) resistance
CPT/HCPCS: 36415; 70450; 71045; 71046; 74177; 80048; 80053; 80061; 80202; 81001; 82550; 82553; 82948; 83036; 83605; 83735; 83880; 84484; 85025; 85610; 85730; 87040; 87086; 87186; 87493; 93005; 99284; J0456; J1940; J3370; J7030; Q9967